=== PATIENT | female | born 1945 | race Caucasian/White ===

== ENCOUNTER → 2019-07-12 | Outpatient (CLI) | payer MEDICARE, BC ==
[2019-07-12 11:17] LABS: Basophils # (A) 0.1 k/uL (0-0.2); Basophils % (A) 1 %; Eosinophils # (A) 0.1 k/uL (0-0.7); Eosinophils % (A) 2 %; HCT 42.8 % (34.0-46.0); HGB 13.5 gm/dL (11.4-16.0); Lymphocytes # (A) 1.6 k/uL (1.0-4.8); Lymphocytes % (A) 27 %; MCHC 31.5 g/dL (31.0-37.0); MCV 91.9 fL (80.0-100.0); Mean Platelet Volume 6.4; Monocytes # (A) 0.4 k/uL (0-1.0); Monocytes % (A) 6 %; Neutrophils # (A) 3.7 k/uL (1.3-7.7); Neutrophils % (A) 62 %; Platelet Count 295 k/uL (150-450); RBC 4.66 m/uL (3.80-5.40); RDW 13.3 % (11.5-15.5); WBC 5.9 k/uL (3.8-10.6)
[2019-07-12 16:02] LABS: African American GFR (CKD) 84.2 (60.0-200.0); Albumin 4.3 g/dL (3.80-4.90); Albumin/Globulin Ratio 2.69 (1.60-3.17); Anion Gap 6.7 mmol/L (4.00-12.00); BUN/Creat Ratio 17.5 Ratio (12.00-20.00); Calcium 10.1 mg/dL (8.7-10.3); Carbon Dioxide 27.3 mmol/L (21.6-31.8); Globulin 1.6 g/dL (1.6-3.3); Potassium 4.2 mmol/L (3.5-5.5); Total Bilirubin 0.3 mg/dL (0.2-1.2); Total Protein 5.9 g/dL (6.2-8.2)
== END | disposition home or self-care (01) ==
LOC: LABWHC1 10:31
PROVIDERS: ATTEND Nurse Practitioner Acute Care
DX: E55.9 Vitamin D deficiency, unspecified (principal); R41.3 Other amnesia
CPT/HCPCS: 36415; 80053; 82306; 82607; 84207; 85025

== ENCOUNTER → 2020-03-20 | Outpatient (CLI) | payer MEDICARE, BC ==
--- NOTE | 2020-03-20 16:34 | FL ---
EXAMINATION TYPE: FL barium swallow DATE OF EXAM: 03/20/2020 HISTORY: Inferior cervical dysphasia with solid foods. COMPARISON: NONE TECHNIQUE: A double contrast esophagram is performed utilizing air and barium. FINDINGS: The esophagus shows no evidence of stricture. There is tertiary peristalsis and retropulsive esophage al waves with delayed esophageal emptying into the stomach. Small sliding-type hiatal hernia. No sign ificant spontaneous or induced gastroesophageal reflux was seen during real time performance of this study. Fluoroscopy time: 1 minute 21 seconds. Total exposures obtained: 27 IMPRESSION: 1. No evidence of esophageal stricture. 2. Esophageal dysmotility as above. 3. Small hiatal hernia.
== END | disposition home or self-care (01) ==
LOC: RADFLMAIN 10:37
PROVIDERS: ATTEND Family Medicine
DX: K22.4 Dyskinesia of esophagus (principal); K44.9 Diaphragmatic hernia without obstruction or gangrene
CPT/HCPCS: 74220

== ENCOUNTER → 2020-07-16 | Outpatient (CLI) | payer MEDICARE, BC ==
--- NOTE | 2020-07-16 15:24 | XR ---
EXAMINATION TYPE: XR shoulder complete RT DATE OF EXAM: 07/16/2020 COMPARISON: NONE HISTORY: Pain TECHNIQUE: Shoulder examined in 3 views FINDINGS: The humeral head articulates with the glenoid. The acromio-clavicular junction has minimal inferior spurring. No acute fractures or dislocations are evident. A follow up study can be performed 7-10 days from acute trauma for continued pain. IMPRESSION: 1. No acute osseous abnormality right shoulder
== END | disposition home or self-care (01) ==
LOC: RADXRMAIN 11:21
PROVIDERS: ATTEND Family Medicine
DX: M25.519 Pain in unspecified shoulder (principal)

== ENCOUNTER 2022-07-30 21:30 | Observation (INO) | payer BC, MEDICARE ==
[2022-07-30] MEDS ORDERED: SODIUM CHLORIDE 0.9% 1,000 ML IV STA (21:32)
--- NOTE | 2022-07-30 21:42 | ED ---
Altered Mental Status HPI - General Chief Complaint: Altered Mental Status Stated Complaint: Altered Mental Time Seen by Provider: 07/30/22 21:31 Source: patient, EMS, RN notes reviewed, old records reviewed Mode of arrival: EMS Limitations: altered mental status - History of Present Illness Initial Comments: This is a 76-year-old female to the emergency department for evaluation of altered mental status change in mental status. Patient sent by family have some left-sided facial droop will reduce it is improving. Patient herself has dementia no complaints poor story. A she presents today for evaluation of increasing mental status possible CVA MD Complaint: altered mental status, confusion, weakness -: unknown Severity: moderate Consistency of Symptoms: waxing and waning, getting worse Context: history of similar presentation Associated Symptoms: weakness Treatments Prior to Arrival: oxygen - Related Data Home Medications Medication Instructions Recorded Confirmed ALPRAZolam [Xanax] 0.25 mg PO BID PRN 07/30/22 07/30/22 Acetaminophen [Tylenol Arthritis] 650 mg PO TID PRN 07/30/22 07/30/22 Cyanocobalamin (Vitamin B-12) 1,000 mcg PO DAILY 07/30/22 07/30/22 [Vitamin B-12] Divalproex Sprinkle [Depakote 125 mg PO DAILY@1800 07/30/22 07/30/22 Sprinkle] Famotidine [Pepcid] 20 mg PO DAILY 07/30/22 07/30/22 Mirtazapine [Remeron Soluspan] 15 mg PO HS 07/30/22 07/30/22 Sennosides/Docusate Sodium [Senna 1 tab PO DAILY 07/30/22 07/30/22 Plus 8.6-50 mg Tablet] busPIRone HCL [Buspar] 7.5 mg PO BID 07/30/22 07/30/22 Allergies Allergy/AdvReac Type Severity Reaction Status Date / Time No Known Allergies Allergy Verified 07/30/22 21:50 Review of Systems ROS Statement: Those systems with pertinent positive or pertinent negative responses have been documented in the HPI. ROS Other: All systems not noted in ROS Statement are negative. Past Medical History Past Medical History: Dementia Additional Past Medical History / Comment(s): diverticulitis History of Any Multi-Drug Resistant Organisms: Unobtainable Past Surgical History: Unable to Obtain Past Psychological History: Unable to Obtain Smoking Status: Unknown if ever smoked Past Alcohol Use History: Unable to Obtain Past Drug Use History: Unable to Obtain General Exam - General Exam Comments Initial Comments: Left facial droop no other focal neurological findings Limitations: altered mental status General appearance: alert, in no apparent distress Head exam: Present: atraumatic, normocephalic, normal inspection Eye exam: Present: normal appearance, PERRL, EOMI. Absent: scleral icterus, conjunctival injection, periorbital swelling ENT exam: Present: normal exam, mucous membranes moist Neck exam: Present: normal inspection. Absent: tenderness, meningismus, lymphadenopathy Respiratory exam: Present: normal lung sounds bilaterally. Absent: respiratory distress, wheezes, rales, rhonchi, stridor Cardiovascular Exam: Present: regular rate, normal rhythm, normal heart sounds. Absent: systolic murmur, diastolic murmur, rubs, gallop, clicks GI/Abdominal exam: Present: soft, normal bowel sounds. Absent: distended, tenderness, guarding, rebound, rigid Extremities exam: Present: normal inspection, full ROM, normal capillary refill. Absent: tenderness, pedal edema, joint swelling, calf tenderness Back exam: Present: normal inspection Neurological exam: Present: alert, oriented X3, CN II-XII intact Psychiatric exam: Present: normal affect, normal mood Skin exam: Present: warm, dry, intact, normal color. Absent: rash Course Vital Signs 07/30/22 07/30/22 21:32 22:58 Temperature 98.4 F Pulse Rate 77 70 Respiratory 16 18 Rate Blood Pressure 142/90 130/65 O2 Sat by Pulse 100 98 Oximetry - Reevaluation(s) Reevaluation #1: 07/31/22 00:24 Medical records reviewed Reevaluation #2: 07/31/22 00:24 Patient's facial droop is mildly improved Reevaluation #3: 07/31/22 00:24 Patient family informed of results and questions have been answered - Consultations Consultation #1: Spoke with admitting physicians will admit this patient Medical Decision Making - Medical Decision Making 6 female DEL with mildly worsening dementia or altered mental status. Little facial droop noted on the left which does appear to be improving patient will be admitted for TIA IV hydration monitoring of neurological complaints and symptoms - Lab Data Result diagrams: 07/30/22 21:43 07/30/22 21:43 Lab Results 07/30/22 07/30/22 07/30/22 Range/Units 21:43 21:43 21:43 WBC 8.1 (3.8-10.6) k/uL RBC 3.92 (3.80-5.40) m/uL Hgb 11.6 (11.4-16.0) gm/dL Hct 37.1 (34.0-46.0) % MCV 94.7 (80.0-100.0) fL MCH 29.6 (25.0-35.0) pg MCHC 31.2 (31.0-37.0) g/dL RDW 14.3 (11.5-15.5) % Plt Count 224 (150-450) k/uL MPV 8.7 Neutrophils % 67 % Lymphocytes % 25 % Monocytes % 5 % Eosinophils % 1 % Basophils % 0 % Neutrophils # 5.4 (1.3-7.7) k/uL Lymphocytes # 2.0 (1.0-4.8) k/uL Monocytes # 0.4 (0-1.0) k/uL Eosinophils # 0.1 (0-0.7) k/uL Basophils # 0.0 (0-0.2) k/uL PT 11.1 (9.0-12.0) sec INR 1.1 (<1.2) APTT 22.2 (22.0-30.0) sec Sodium 139 (137-145) mmol/L Potassium 4.6 (3.5-5.1) mmol/L Chloride 107 (98-107) mmol/L Carbon Dioxide 30 (22-30) mmol/L Anion Gap 2 mmol/L BUN 19 H (7-17) mg/dL Creatinine 0.76 (0.52-1.04) mg/dL Est GFR (CKD-EPI)AfAm 88 (>60 ml/min/1.73 sqM) Est GFR (CKD-EPI)NonAf 76 (>60 ml/min/1.73 sqM) Glucose 87 (74-99) mg/dL Plasma Lactic Acid Vinicius (0.7-2.0) mmol/L Calcium 10.4 H (8.4-10.2) mg/dL Phosphorus 3.5 (2.5-4.5) mg/dL Magnesium 2.4 H (1.6-2.3) mg/dL Total Bilirubin 0.3 (0.2-1.3) mg/dL AST 19 (14-36) U/L ALT 13 (4-34) U/L Alkaline Phosphatase 38 (38-126) U/L Ammonia (<30) umol/L Troponin I (0.000-0.034) ng/mL NT-Pro-B Natriuret Pep pg/mL Total Protein 6.0 L (6.3-8.2) g/dL Albumin 3.8 (3.5-5.0) g/dL TSH 2.740 (0.465-4.680) mIU/L Urine Color Urine Appearance (Clear) Urine pH (5.0-8.0) Ur Specific [place] (1.001-1.035) Urine Protein (Negative) Urine Glucose (UA) (Negative) Urine Ketones (Negative) Urine Blood (Negative) Urine Nitrite (Negative) Urine Bilirubin (Negative) Urine Urobilinogen (<2.0) mg/dL Ur Leukocyte Esterase (Negative) 07/30/22 07/30/22 07/30/22 Range/Units 21:43 21:43 21:43 WBC (3.8-10.6) k/uL RBC (3.80-5.40) m/uL Hgb (11.4-16.0) gm/dL Hct (34.0-46.0) % MCV (80.0-100.0) fL MCH (25.0-35.0) pg MCHC (31.0-37.0) g/dL RDW (11.5-15.5) % Plt Count (150-450) k/uL MPV Neutrophils % % Lymphocytes % % Monocytes % % Eosinophils % % Basophils % % Neutrophils # (1.3-7.7) k/uL Lymphocytes # (1.0-4.8) k/uL Monocytes # (0-1.0) k/uL Eosinophils # (0-0.7) k/uL Basophils # (0-0.2) k/uL PT (9.0-12.0) sec INR (<1.2) APTT (22.0-30.0) sec Sodium (137-145) mmol/L Potassium (3.5-5.1) mmol/L Chloride (98-107) mmol/L Carbon Dioxide (22-30) mmol/L Anion Gap mmol/L BUN (7-17) mg/dL Creatinine (0.52-1.04) mg/dL Est GFR (CKD-EPI)AfAm (>60 ml/min/1.73 sqM) Est GFR (CKD-EPI)NonAf (>60 ml/min/1.73 sqM) Glucose (74-99) mg/dL Plasma Lactic Acid Vinicius 0.8 (0.7-2.0) mmol/L Calcium (8.4-10.2) mg/dL Phosphorus (2.5-4.5) mg/dL Magnesium (1.6-2.3) mg/dL Total Bilirubin (0.2-1.3) mg/dL AST (14-36) U/L ALT (4-34) U/L Alkaline Phosphatase (38-126) U/L Ammonia <9 (<30) umol/L Troponin I <0.012 (0.000-0.034) ng/mL NT-Pro-B Natriuret Pep 200 pg/mL Total Protein (6.3-8.2) g/dL Albumin (3.5-5.0) g/dL TSH (0.465-4.680) mIU/L Urine Color Urine Appearance (Clear) Urine pH (5.0-8.0) Ur Specific [place] (1.001-1.035) Urine Protein (Negative) Urine Glucose (UA) (Negative) Urine Ketones (Negative) Urine Blood (Negative) Urine Nitrite (Negative) Urine Bilirubin (Negative) Urine Urobilinogen (<2.0) mg/dL Ur Leukocyte Esterase (Negative) 07/30/22 Range/Units 21:44 WBC (3.8-10.6) k/uL RBC (3.80-5.40) m/uL Hgb (11.4-16.0) gm/dL Hct (34.0-46.0) % MCV (80.0-100.0) fL MCH (25.0-35.0) pg MCHC (31.0-37.0) g/dL RDW (11.5-15.5) % Plt Count (150-450) k/uL MPV Neutrophils % % Lymphocytes % % Monocytes % % Eosinophils % % Basophils % % Neutrophils # (1.3-7.7) k/uL Lymphocytes # (1.0-4.8) k/uL Monocytes # (0-1.0) k/uL Eosinophils # (0-0.7) k/uL Basophils # (0-0.2) k/uL PT (9.0-12.0) sec INR (<1.2) APTT (22.0-30.0) sec Sodium (137-145) mmol/L Potassium (3.5-5.1) mmol/L Chloride (98-107) mmol/L Carbon Dioxide (22-30) mmol/L Anion Gap mmol/L BUN (7-17) mg/dL Creatinine (0.52-1.04) mg/dL Est GFR (CKD-EPI)AfAm (>60 ml/min/1.73 sqM) Est GFR (CKD-EPI)NonAf (>60 ml/min/1.73 sqM) Glucose (74-99) mg/dL Plasma Lactic Acid Vinicius (0.7-2.0) mmol/L Calcium (8.4-10.2) mg/dL Phosphorus (2.5-4.5) mg/dL Magnesium (1.6-2.3) mg/dL Total Bilirubin (0.2-1.3) mg/dL AST (14-36) U/L ALT (4-34) U/L Alkaline Phosphatase (38-126) U/L Ammonia (<30) umol/L Troponin I (0.000-0.034) ng/mL NT-Pro-B Natriuret Pep pg/mL Total Protein (6.3-8.2) g/dL Albumin (3.5-5.0) g/dL TSH (0.465-4.680) mIU/L Urine Color Yellow Urine Appearance Clear (Clear) Urine pH 6.0 (5.0-8.0) Ur Specific [place] 1.017 (1.001-1.035) Urine Protein Negative (Negative) Urine Glucose (UA) Negative (Negative) Urine Ketones Negative (Negative) Urine Blood Negative (Negative) Urine Nitrite Negative (Negative) Urine Bilirubin Negative (Negative) Urine Urobilinogen <2.0 (<2.0) mg/dL Ur Leukocyte Esterase Negative (Negative) - EKG Data -: EKG Interpreted by Me (EKG shows NSR 66 NC 145 QRS 84 QTc 413) - Radiology Data Radiology results: report reviewed (CT brain negative for acute disease), image reviewed Disposition Clinical Impression: Altered mental status, TIA (transient ischemic attack), Weakness, Dehydration Disposition: ADMITTED IP TO THIS HOSP Condition: Fair Is patient prescribed a controlled substance at d/c from ED?: No Referrals: Santana Pacheco MD [Primary Care Provider] - 1-2 days Time of Disposition: 00:25
[2022-07-30 21:53] LABS: Appearance,Urine Clear (Clear); Bilirubin,Urine Negative (Negative); Blood,Urine Negative (Negative); Color,Urine Yellow; Glucose,Urine (UA) Negative (Negative); Ketones,Urine Negative (Negative); Leukocyte Esterase,Urine Negative (Negative); Nitrite,Urine Negative (Negative); Protein,Urine Negative (Negative); Specific Gravity,Urine 1.017 (1.001-1.035); Urobilinogen,Urine <2.0 mg/dL (<2.0)
[2022-07-30 21:55] LABS: Basophils % (A) 0 %; Eosinophils # (A) 0.1 k/uL (0-0.7); Eosinophils % (A) 1 %; HCT 37.1 % (34.0-46.0); HGB 11.6 gm/dL (11.4-16.0); Lymphocytes % (A) 25 %; MCH 29.6 pg (25.0-35.0); MCHC 31.2 g/dL (31.0-37.0); MCV 94.7 fL (80.0-100.0); Mean Platelet Volume 8.7; Monocytes # (A) 0.4 k/uL (0-1.0); Monocytes % (A) 5 %; Neutrophils # (A) 5.4 k/uL (1.3-7.7); Neutrophils % (A) 67 %; Platelet Count 224 k/uL (150-450); RBC 3.92 m/uL (3.80-5.40); RDW 14.3 % (11.5-15.5); WBC 8.1 k/uL (3.8-10.6)
[2022-07-30 22:03] LABS: Lactic Acid, Venous 0.8 mmol/L (0.7-2.0)
[2022-07-30 22:06] LABS: Albumin 3.8 g/dL (3.5-5.0); Calcium 10.4 mg/dL (8.4-10.2); Total Bilirubin 0.3 mg/dL (0.2-1.3)
[2022-07-30 22:09] LABS: INR 1.1 (<1.2); Partial Thromboplastin Time 22.2 sec (22.0-30.0); Prothrombin Time 11.1 sec (9.0-12.0)
[2022-07-30 22:20] LABS: Magnesium 2.4 mg/dL (1.6-2.3); Phosphorus 3.5 mg/dL (2.5-4.5); Potassium 4.6 mmol/L (3.5-5.1)
--- NOTE | 2022-07-31 00:01 | CT ---
EXAMINATION TYPE: CT brain wo con DATE OF EXAM: 07/30/2022 COMPARISON: None HISTORY: AMS CT DLP: 1121.4 mGycm Automated exposure control for dose reduction was used. Images obtained of the brain with no contrast. There is moderate diffuse cerebral cortical atrophy. There is no mass effect or midline shift. No sig n of intracranial hemorrhage. The calvarium is intact. The skull base is intact. There is normal aera tion of the mastoid sinuses. IMPRESSION: Cerebral atrophy. No acute intracranial abnormality.
[2022-07-31] MEDS ORDERED: NALOXONE 0.4 MG/ML 1 ML VIAL IV PRN (02:15)
[2022-07-31] MEDS ORDERED: ONDANSETRON 4 MG/2 ML VIAL IVP PRN (02:15)
[2022-07-31] MEDS ORDERED: MORPHINE SULFATE 4 MG/ML SYRINGE IV PRN (02:15)
[2022-07-31] MEDS ORDERED: ASPIRIN 81 MG PO STA (02:16)
[2022-07-31] MEDS: SODIUM CHLORIDE 0.9% 1,000 ML IV SCH ×3 (09:01→17:16)
[2022-07-31] MEDS ORDERED: ALPRAZolam 0.25 MG TAB PO PRN (10:33)
--- NOTE | 2022-07-31 10:41 | P.HPIM ---
History of Present Illness H&P Date: 07/31/22 History of present illness: Patient is 76-year-old lady with past medical history for dementia presented to the ER because of altered mental status. Family noted that the patient was much more confused from her baseline and also they noticed she had left facial droop. They didn't notice any weakness of any extremity. There was no complain of any slurred speech. Because of her altered mental status, patient was brought to the ER.Initial lab work done in the ER, showed patient hemoglobin of 11.6, patient currently 24, sodium 139, potassium 4.6, chloride 107, carbon dioxide 30, creatinine 0.76, UA negative for UTI, CT head negative for acute intracranial process. Patient was admitted for further evaluation and treatment REVIEW OF SYSTEMS: CONSTITUTIONAL: No fever, no malaise, no fatigue. HEENT: No recent visual problems or hearing problems. Denied any sore throat. CARDIOVASCULAR: No chest pain, orthopnea, PND, no palpitations, no syncope. PULMONARY: No shortness of breath, no cough, no hemoptysis. GASTROINTESTINAL: No diarrhea, no nausea, no vomiting, no abdominal pain. NEUROLOGICAL: No headaches, no weakness, no numbness. HEMATOLOGICAL: Denies any bleeding or petechiae. GENITOURINARY: Denies any burning micturition, frequency, or urgency. MUSCULOSKELETAL/RHEUMATOLOGICAL: Denies any joint pain, swelling, or any muscle pain. ENDOCRINE: Denies any polyuria or polydipsia. The rest of the 14-point review of systems is negative. PHYSICAL EXAMINATION: GENERAL: The patient is alert and oriented xself, not in any acute distress. Well developed, well nourished. HEENT: Pupils are round and equally reacting to light. EOMI. No scleral icterus. No conjunctival pallor. Normocephalic, atraumatic. No pharyngeal erythema. No thyromegaly. CARDIOVASCULAR: S1 and S2 present. No murmurs, rubs, or gallops. PULMONARY: Chest is clear to auscultation, no wheezing or crackles. ABDOMEN: Soft, nontender, nondistended, normoactive bowel sounds. No palpable organomegaly. MUSCULOSKELETAL: No joint swelling or deformity. EXTREMITIES: No cyanosis, clubbing, or pedal edema. NEUROLOGICAL: Gross neurological examination did not reveal any focal deficits. Muscle strength 5 x 5 in all extremities, no obvious facial droop seen SKIN: No rashes. Assessment and plan TIA. Acute metabolic encephalopathy History of dementia Plan; Monitor vital signs Monitor CBC Fall precaution Delirium precaution Consult neurology Consult PT and OT Resume home meds Past Medical History Past Medical History: Dementia Additional Past Medical History / Comment(s): diverticulitis History of Any Multi-Drug Resistant Organisms: Unobtainable Past Surgical History: Unable to Obtain Past Psychological History: Unable to Obtain Smoking Status: Unknown if ever smoked Past Alcohol Use History: Unable to Obtain Past Drug Use History: Unable to Obtain Medications and Allergies Home Medications Medication Instructions Recorded Confirmed Type ALPRAZolam [Xanax] 0.25 mg PO BID PRN 07/30/22 07/30/22 History Acetaminophen [Tylenol Arthritis] 650 mg PO TID PRN 07/30/22 07/30/22 History Cyanocobalamin (Vitamin B-12) 1,000 mcg PO DAILY 07/30/22 07/30/22 History [Vitamin B-12] Divalproex Sprinkle [Depakote 125 mg PO DAILY@1800 07/30/22 07/30/22 History Sprinkle] Famotidine [Pepcid] 20 mg PO DAILY 07/30/22 07/30/22 History Mirtazapine [Remeron Soluspan] 15 mg PO HS 07/30/22 07/30/22 History Sennosides/Docusate Sodium [Senna 1 tab PO DAILY 07/30/22 07/30/22 History Plus 8.6-50 mg Tablet] busPIRone HCL [Buspar] 7.5 mg PO BID 07/30/22 07/30/22 History Allergies Allergy/AdvReac Type Severity Reaction Status Date / Time No Known Allergies Allergy Verified 07/30/22 21:50 Physical Exam Vitals: Vital Signs Temp Pulse Resp BP Pulse Ox 07/31/22 09:36 62 07/31/22 09:08 65 18 07/31/22 06:43 64 18 121/59 98 07/31/22 03:00 57 L 18 132/76 98 07/30/22 22:58 70 18 130/65 98 07/30/22 21:32 98.4 F 77 16 142/90 100 Intake and Output 07/30/22 07/31/22 07/31/22 22:59 06:59 14:59 Other: Weight 44.724 kg Results CBC & Chem 7: 07/30/22 21:43 07/30/22 21:43 Labs: Abnormal Lab Results - Last 24 Hours (Table) 07/30/22 Range/Units 21:43 BUN 19 H (7-17) mg/dL Calcium 10.4 H (8.4-10.2) mg/dL Magnesium 2.4 H (1.6-2.3) mg/dL Total Protein 6.0 L (6.3-8.2) g/dL
[2022-07-31] MEDS ORDERED: DIVALPROEX SPRINKLE 125 MG CAP.SPRINK PO SCH (18:00)
--- NOTE | 2022-07-31 19:16 | P.CNNES ---
History of Present Illness Consult date: 07/31/22 Requesting physician: Lenny Dunaway Reason for Consult: TIA History of Present Illness: Patient is a 76-year-old female with history of advanced dementia, resident of [facility] was brought to the hospital by ambulance yesterday at 9:30 PM for possible TIA. Patient not able to provide any history. Patient's son and daughter in law are present, who provided with a history. They mentioned that they got a call from the [facility] that patient was having a droopy face. Patient's family came over and also observed her face was droopy. She was also complaining of a lot of pain. However within 2 hours, the droopiness resolved. There was no focal weakness or visual disturbance reported. As per EMS flow sheet, when they arrived, patient was in care of staff who noticed some mental status changes with the patient, not responding as per her normal. Patient was alert and oriented 2 per staff at baseline. However she does interact appropriately with the staff. Patient was actively moving all her extremities on her own. She was using words but does not seem to have any purpose. She did complain of feeling dizzy. Last seen normal was 7:45 PM. Patient's vitals at the scene was blood pressure 147/89 pulse rate 88, respiration 20 and saturation 97%, blood sugar 160. Blood test shows normal CBC PT/PTT, normal chem 20, troponin is negative, ammonia is normal. TSH normal. UA negative. CT head showed cerebral atrophy with no acute intracranial abnormality. I personally reviewed CT head a few the findings. EKG shows sinus rhythm. Patient's home medications include Remeron 15 mg, BuSpar 7.5 mg twice a day, B12 1000 g orally daily, Xanax 0.25 mg twice a day when necessary, Pepcid, Depakote 125 mg daily at bedtime and Tylenol. Patient does not take any antiplatelet medication. No previous history of diabetes, hypertension and tobacco or alcohol use. Patient's dementia started about 5 years ago. It is particularly got worse in the last 8-12 months. Patient has not seen a neurologist for last 3-4 years. Patient has strong family history of dementia in her brother, mother and one maternal aunt. Patient's used to take care of her, but he in December. She has been more confused since then. Review of Systems Patient has advanced dementia, not able to provide any review of systems. Patient's family also could not provide any more. ROS unobtainable: due to mental status Past Medical History Past Medical History: Dementia Additional Past Medical History / Comment(s): diverticulitis History of Any Multi-Drug Resistant Organisms: Unobtainable Past Surgical History: Unable to Obtain Past Psychological History: Unable to Obtain Smoking Status: Unknown if ever smoked Past Alcohol Use History: Unable to Obtain Past Drug Use History: Unable to Obtain Medications and Allergies Home Medications Medication Instructions Recorded Confirmed Type ALPRAZolam [Xanax] 0.25 mg PO BID PRN 07/30/22 07/30/22 History Acetaminophen [Tylenol Arthritis] 650 mg PO TID PRN 07/30/22 07/30/22 History Cyanocobalamin (Vitamin B-12) 1,000 mcg PO DAILY 07/30/22 07/30/22 History [Vitamin B-12] Divalproex Sprinkle [Depakote 125 mg PO DAILY@1800 07/30/22 07/30/22 History Sprinkle] Famotidine [Pepcid] 20 mg PO DAILY 07/30/22 07/30/22 History Mirtazapine [Remeron Soluspan] 15 mg PO HS 07/30/22 07/30/22 History Sennosides/Docusate Sodium [Senna 1 tab PO DAILY 07/30/22 07/30/22 History Plus 8.6-50 mg Tablet] busPIRone HCL [Buspar] 7.5 mg PO BID 07/30/22 07/30/22 History Allergies Allergy/AdvReac Type Severity Reaction Status Date / Time No Known Allergies Allergy Verified 07/30/22 21:50 Physical Examination - Vital Signs Vital Signs: Vital Signs Temp Pulse Resp BP Pulse Ox 07/31/22 09:36 62 07/31/22 09:08 65 18 07/31/22 06:43 64 18 121/59 98 07/31/22 03:00 57 L 18 132/76 98 07/30/22 22:58 70 18 130/65 98 07/30/22 21:32 98.4 F 77 16 142/90 100 Intake and Output 07/30/22 07/31/22 07/31/22 22:59 06:59 14:59 Other: Weight 44.724 kg Patient is an elderly female, in no acute distress. Patient is alert awake, very confused. Patient knows her name, able to tell name of her son and [id number]. She could not tell name of her son just, who is estranged. Patient could not tell how many children she has. She could not tell what city or state she is living in. Her limited speech was clear. Kevin goss was not able to name knuckles or earlobes, (only able to tell fingers and ears) Speech and language functions are normal. Attention, concentration and fund of knowledge is very limited. On cranial nerve examination, pupils are equal, round and reacting to light, patient blinks to visual threat bilaterally. Extraocular muscles are intact with no nystagmus. Face is symmetric, tongue protrudes to the midline. Palatal elevation and sensation normal, hearing is decreased and shoulder shrug normal, facial sensation normal. On muscle strength testing, there is no pronator drift and the strength is normal in arms and legs distally and proximally. Deep tendon reflexes are symmetric to all over and plantars are flat bilaterally. Sensory to touch is equal. She could not follow directions regarding checking for neglect. Cerebellar function showed no ataxia for [id number] testing. Tone and bulk of muscles normal. Gait deferred.. On general examination, there is no carotid bruit or murmur, S1-S2 audible. Chest is clear on consultation. Abdomen is soft nontender. No organomegaly, bowel sounds present. Peripheral pulses are present. No edema. Results - Laboratory Findings CBC and BMP: 07/30/22 21:43 07/30/22 21:43 Abnormal Lab Findings: Abnormal Labs 07/30/22 21:43 BUN 19 H Calcium 10.4 H Magnesium 2.4 H Total Protein 6.0 L Assessment and Plan Assessment: * Probable TIA manifesting with transient facial droop, that resolved in 2 hours. * Advanced dementia Plan: * Carotid Doppler * 2-D echo * Fasting a.m. lipid panel and hemoglobin A1c * Patient has received a loading dose of aspirin 324 mg in the ER. Patient will be started on aspirin 81 mg daily indefinitely. * Continue telemetry monitoring. * DVT prophylaxis: Heparin 5000 units subcu every 12 hours. * Dr. Sd Holland Will resume neurology service in the morning. * Thank you for the consult.
--- NOTE | 2022-07-31 20:08 | US ---
EXAMINATION TYPE: US carotid duplex BILAT DATE OF EXAM: 07/31/2022 COMPARISON: NONE CLINICAL HISTORY: TIA. TIA Limited due to patient moving and talking. TECHNIQUE: Carotid duplex ultrasound examination. Indirect Doppler criteria was utilized. FINDINGS: EXAM MEASUREMENTS: RIGHT: Peak Systolic Velocity (PSV) cm/sec ----- Right CCA: 45.9 ----- Right ICA: 133.4 ----- Right ECA: 86.6 ICA/CCA ratio: 2.9 RIGHT: End Diastole cm/sec ----- Right CCA: 0 ----- Right ICA: 20.4 ----- Right ECA: 17.1 LEFT: Peak Systolic Velocity (PSV) cm/sec ----- Left CCA: 51 ----- Left ICA: 59.1 ----- Left ECA: 97.3 ICA/CCA ratio: 1.2 LEFT: End Diastole cm/sec ----- Left CCA: 10.7 ----- Left ICA: 15.5 ----- Left ECA: 0 VERTEBRALS (direction of flow): Right Vertebral: Antegrade Left Vertebral: Antegrade Rhythm: Normal STYLIST ASSISTANT NOTES: No significant stenosis seen IMPRESSION: There is antegrade flow in the vertebral arteries. The images and measurements suggest less than 25% stenosis in both internal carotid arteries. Criteria for Assigning % of Stenosis / Diameter reduction (Estimation based on the indirect measurements of the internal carotid artery velocities (ICA PSV). 1. Normal (no stenosis)=ICA PSV < 125 cm/s: ratio < 2.0: ICA EDV<40 cm/s. 2. Less than 50% stenosis=ICA PSV < 125 cm/s: ratio < 2.0: ICA EDV<40 cm/s. 3. 50 to 69% stenosis=ICA PSV of 125 to 230 cm/s: ration 2.0 ? 4.0: ICA EDV 40-100 cm/s. 4. Greater than 70% stenosis to near occlusion= ICA PSV > 230 cm/s: ratio > 4.0: ICA EDV > 100 cm/s. 5. Near occlusion= ICA PSV velocities may be low or undetectable: variable ratio and ICA EDV. 6. Total occlusion=unable to detect flow.
[2022-07-31] MEDS: busPIRone HCl 5 MG TAB PO SCH (20:57)
[2022-07-31] MEDS: HEPARIN SODIUM,PORCINE/PF 5,000 UNIT/0.5 ML SYRINGE SQ SCH (20:57)
[2022-07-31] MEDS ORDERED: MIRTAZAPINE 15 MG TAB PO SCH (21:00)
[2022-08-01] MEDS: SODIUM CHLORIDE 0.9% 1,000 ML IV SCH (06:17)
[2022-08-01 08:40] VITALS: RESP 16
[2022-08-01 09:00] LABS: Basophils # (A) 0.04 X 10*3/uL (0.00-0.10); Basophils % (A) 0.6 %; Eosinophils # (A) 0.12 X 10*3/uL (0.04-0.35); Eosinophils % (A) 1.9 %; HCT 35.2 % (37.2-46.3); HGB 11.1 g/dL (12.0-15.0); Immature Grans, Automated 0.3 %; Lymphocytes # (A) 1.17 X 10*3/uL (0.90-5.00); MCH 29.1 pg (27.0-32.0); MCHC 31.5 g/dL (32.0-37.0); MCV 92.4 fL (80.0-97.0); Mean Platelet Volume 10.3 fL (9.5-12.2); Monocytes # (A) 0.41 X 10*3/uL (0.20-1.00); Monocytes % (A) 6.7 %; NRBC Per 100 WBC 0 /100 WBCS (0.0-0.0); Neutrophils % (A) 71.5 %; Platelet Count 220 X 10*3/uL (140-440); RBC 3.81 X 10*6/uL (4.10-5.20); RDW 14.6 % (11.5-14.5); WBC 6.16 X 10*3/uL (4.50-10.00)
[2022-08-01] MEDS ORDERED: CYANOCOBALAMIN 500 MCG TAB PO SCH (09:00)
[2022-08-01] MEDS ORDERED: ASPIRIN 81 MG PO SCH (09:00)
[2022-08-01] MEDS ORDERED: FAMOTIDINE 20 MG/2 ML VIAL IV SCH (09:00)
[2022-08-01 09:17] LABS: ALT 10 U/L (8-44); AST 10 U/L (13-35); African American GFR (CKD) 96.9 (60.0-200.0); Albumin 3.5 g/dL (3.8-4.9); Albumin/Globulin Ratio 2.33 (1.60-3.17); Alkaline Phosphatase 44 U/L (41-126); BUN/Creat Ratio 18.71 Ratio (12.00-20.00); Blood Urea Nitrogen 13.1 mg/dL (9.0-27.0); Calcium 10.1 mg/dL (8.7-10.3); Carbon Dioxide 25.5 mmol/L (20.0-27.5); Chloride 108 mmol/L (96-109); Chol/HDL Ratio 5.52 Ratio; Globulin 1.5 g/dL (1.6-3.3); Glucose 88 mg/dL (70-110); Magnesium 2.2 mg/dL (1.5-2.4); Non-African American GFR(CKD) 83.6 (60.0-200.0); Phosphorus 3.2 mg/dL (2.4-5.1); Potassium 3.8 mmol/L (3.5-5.5); Sodium 142 mmol/L (135-145); VLDL Calculation 19.66 mg/dL (5.00-40.00)
[2022-08-01] MEDS: busPIRone HCl 5 MG TAB PO SCH (10:33)
[2022-08-01] MEDS: HEPARIN SODIUM,PORCINE/PF 5,000 UNIT/0.5 ML SYRINGE SQ SCH (11:17)
--- NOTE | 2022-08-01 12:31 | P.PN ---
Subjective Progress Note Date: 08/01/22 I am seeing the patient for the first time during this hospital visit. She has advanced dementia. Per family member, patient is doing better and would like to take her home. Please refer to Dr. Zelaya's note for further details. Objective - Vital Signs Vital signs: Vital Signs Temp 97.9 F 08/01/22 07:00 Pulse 74 08/01/22 07:00 Resp 16 08/01/22 07:00 BP 114/66 08/01/22 07:00 Pulse Ox 100 08/01/22 07:00 FiO2 Intake & Output 07/31/22 08/01/22 08/01/22 18:59 06:59 18:59 Intake Total 240 Balance 240 Weight 44.724 kg Intake: Oral 240 Other: # Voids 2 - Exam GENERAL: The patient is lying in bed and is not in acute distress. NEUROLOGICAL: Limited since has advanced dementia and because of cooperation. Higher mental function: The patient is awake, alert, oriented to self. She stated she does not know time and could not respond to place. Language is limited. Cranial nerves: The pupils are round, equal and reactive to light. No facial weakness. No dysarthria. Otherwise rest is limited because of cooperation. Motor: Gait with family member and was somewhat one person assist. The strength is 5 over 5 throughout. Normal tone and bulk. Cerebellum: Unable to assess. Sensation: Unable to assess. - Labs CBC & Chem 7: 08/01/22 06:04 08/01/22 06:04 Labs: Abnormal Lab Results - Last 24 Hours (Table) 08/01/22 08/01/22 Range/Units 06:04 06:04 RBC 3.81 L (4.10-5.20) X 10*6/uL Hgb 11.1 L (12.0-15.0) g/dL Hct 35.2 L (37.2-46.3) % MCHC 31.5 L (32.0-37.0) g/dL RDW 14.6 H (11.5-14.5) % Anion Gap 8.50 L (10.00-18.00) mmol/L AST 10 L (13-35) U/L Total Protein 5.0 L (6.2-8.2) g/dL Albumin 3.5 L (3.8-4.9) g/dL Globulin 1.5 L (1.6-3.3) g/dL Cholesterol 217.00 H (0.00-200.00) mg/dL LDL Cholesterol, Calc 158.0 H (0.0-131.0) mg/dL HDL Cholesterol 39.30 L (40.00-60.00) mg/dL Assessment and Plan Assessment: * Probable TIA manifesting with transient facial droop, that resolved in 2 hours. * Advanced dementia Plan: * Carotid Doppler: It is reported as there is antegrade flow in the vertebral arteries. Images and measurements suggest less than 25% stenosis in both internal carotid arteries. * 2-D echo: pending. * Fasting a.m. lipid panel: TG 98, cholestrol 217, LDL 158. Hemoglobin A1c: 5.5 * TSH: 2.74 * Patient has received a loading dose of aspirin 324 mg in the ER. Patient will be started on aspirin 81 mg daily indefinitely. * Continue telemetry monitoring. * DVT prophylaxis: Heparin 5000 units subcu every 12 hours. Otherwise no additional work-up best pending 2D echo. Plan is discussed with patient's primary team. Time with Patient: Less than 30
--- NOTE | 2022-08-01 14:38 | CA ---
Transthoracic Echo Report Name: Ricarda Wade Age: 76 Gender: F : 1945 Exam Date: 08/01/2022 09:58 Exam Location: [facility] Ht (in): 62 Wt (lb): 98 Ordering Physician: Travis Zelaya MD Attending/Referring Phys: Electrical And Instrument Technician Geovanna Huerta RDCS Procedure CPT: Indications: tia Cardiac Hx: Technical Quality: Fair Contrast 1: Total Dose (mL): Contrast 2: Total Dose (mL): MEASUREMENTS (Male / Female) Normal Values 2D ECHO LV Diastolic Diameter PLAX 3.6 cm 4.2 - 5.9 / 3.9 - 5.3 cm LV Systolic Diameter PLAX 1.9 cm IVS Diastolic Thickness 0.7 cm 0.6 - 1.0 / 0.6 - 0.9 cm LVPW Diastolic Thickness 0.7 cm 0.6 - 1.0 / 0.6 - 0.9 cm LV Relative Wall Thickness 0.4 RV Internal Dim ED PLAX 3.1 cm LA Volume 26.8 cm??? 18 - 58 / 22 - 52 cm??? M-MODE Aortic Root Diameter MM 2.5 cm LA Systolic Diameter MM 3.1 cm LA Ao Ratio MM 1.2 AV Cusp Separation MM 1.6 cm DOPPLER AV Peak Velocity 134.9 cm/s AV Peak Gradient 7.3 mmHg AV Mean Velocity 88.1 cm/s AV Mean Gradient 3.6 mmHg AV Velocity Time Integral 25.1 cm LVOT Peak Velocity 96.9 cm/s LVOT Peak Gradient 3.8 mmHg MV Area PHT 3.0 cm??? Mitral E Point Velocity 80.0 cm/s Mitral A Point Velocity 107.3 cm/s Mitral E to A Ratio 0.7 MV Deceleration Time 251.1 ms MV E' Velocity 7.3 cm/s Mitral E to MV E' Ratio 10.9 TR Peak Velocity 260.1 cm/s TR Peak Gradient 27.1 mmHg Right Ventricular Systolic Press 32.1 mmHg FINDINGS Left Ventricle Normal Left ventricular size, wall thickness, systolic function with no obvious regional wall motion abnormalities. Normal Left ventricular diastolic filling pattern. Left ventricular ejection fraction is estimated at 55-60 %. Right Ventricle Normal right ventricular size and function. Right ventricular systolic pressure within normal limits. Right Atrium Normal right atrial size. Left Atrium Normal left atrial size. Mitral Valve Structurally normal mitral valve. No mitral stenosis and prolapse. Trace mitral regurgitation. Aortic Valve Trileaflet aortic valve. No aortic valve stenosis or regurgitation. Tricuspid Valve Structurally normal tricuspid valve. Mild tricuspid regurgitation. Pulmonic Valve Trace pulmonic regurgitation. Pericardium No pericardial effusion. Aorta Normal size aortic root and proximal ascending aorta. CONCLUSIONS Normal LV systolic function No valvular abnormalities of significance Previewed by: Dr. Benitez Garcia MD (Electronically Signed) Final Date: 01 August 2022 14:37
[2022-08-01 15:29] VITALS: BP 120/65; PULSE 62; TEMP 97.4
--- NOTE | 2022-08-01 22:24 | P.DS ---
Providers Date of admission: 07/31/22 02:15 Attending physician: Hilton Raza Consults: 07/31/22 02:15 Consult Physician Routine Consulting Provider: Travis Zelaya Consult Reason/Comments: tia Do you want consulting provider notified?: Yes Primary care physician: Santana Pacheco Hospital Course: Hospital course: Patient is 76-year-old lady with past medical history for dementia presented to the ER because of altered mental status. Family noted that the patient was much more confused from her baseline and also they noticed she had left facial droop. Within 2 hours patient back to baseline. I discussed the case with the neurologist today patient looks like has advanced dementia, patient is at baseline and family and daughter wants to take her home today. Patient was started on baby aspirin 81 mg daily. Patient was lying in bed comfortable pleasant and smiling, she denies any pain. Patient looks somewhat confused to the surroundings. CT of the brain was negative Vitals and labs reviewed and looks stable Patient was cleared for discharge by neurologist Patient was started on aspirin upon discharge, risk and benefits including but not limited to the risk of significant bleeding are explained to the family and they are agreeable. Problems and management plan were discussed with the patient family and they verbalized understanding and acceptance Patient was found stable and can be discharged home in guarded prognosis however he needs follow-up as an outpatient. Patient was instructed to follow up with PCP within one week and patient family agrees, as per family patient has visit ing physician rather than Dr. Pacheco Physical exam Gen: patient is a awake alert and confused at baseline, no distress CVS: S1-S2, RRR, no murmur Lungs: B/L CTA, no wheezing Abdomen: soft, no distention, no tenderness, positive bowel sounds Extremity: no leg edema or induration Time spent more than 35 minutes Patient Condition at Discharge: Fair Plan - Discharge Summary New Discharge Prescriptions: New Aspirin 81 mg PO DAILY #30 tab Continue Sennosides/Docusate Sodium [Senna Plus 8.6-50 mg Tablet] 1 tab PO DAILY Mirtazapine [Remeron Soluspan] 15 mg PO HS busPIRone HCL [Buspar] 7.5 mg PO BID Cyanocobalamin (Vitamin B-12) [Vitamin B-12] 1,000 mcg PO DAILY ALPRAZolam [Xanax] 0.25 mg PO BID PRN PRN Reason: Anxiety Famotidine [Pepcid] 20 mg PO DAILY Divalproex Sprinkle [Depakote Sprinkle] 125 mg PO DAILY@1800 Acetaminophen [Tylenol Arthritis] 650 mg PO TID PRN PRN Reason: Pain Discharge Medication List ALPRAZolam [Xanax] 0.25 mg PO BID PRN 07/30/22 [History] Acetaminophen [Tylenol Arthritis] 650 mg PO TID PRN 07/30/22 [History] Cyanocobalamin (Vitamin B-12) [Vitamin B-12] 1,000 mcg PO DAILY 07/30/22 [History] Divalproex Sprinkle [Depakote Sprinkle] 125 mg PO DAILY@1800 07/30/22 [History] Famotidine [Pepcid] 20 mg PO DAILY 07/30/22 [History] Mirtazapine [Remeron Soluspan] 15 mg PO HS 07/30/22 [History] Sennosides/Docusate Sodium [Senna Plus 8.6-50 mg Tablet] 1 tab PO DAILY 07/30/22 [History] busPIRone HCL [Buspar] 7.5 mg PO BID 07/30/22 [History] Aspirin 81 mg PO DAILY #30 tab 08/01/22 [Rx] Follow up Appointment(s)/Referral(s): Santana Pacheco MD [Primary Care Provider] - 1-2 days Luan oMran MD [Medical Doctor] - 1 Week (neurolgist ) Patient Instructions/Handouts: Transient Ischemic Attack (DC) Activity/Diet/Wound Care/Special Instructions: heart heathy diet activity is restricted till you see your doctor Patient resides at [facility]. Discharge Disposition: HOME WITH HOME HEALTH SERVICES
== END 2022-08-01 15:50 | disposition home health service (06) ==
LOC: EC 21:30 → 6NMEDSUR 07-31 02:15
PROVIDERS: ADMIT Hospitalist; ATTEND Hospitalist
DX: G93.41 Metabolic encephalopathy (principal); R29.810 Facial weakness; E86.0 Dehydration; F03.90 Unspecified dementia, unspecified severity, without behavioral disturbance, psychotic disturbance, mood disturbance, and anxiety; Z79.899 Other long term (current) drug therapy; Z81.8 Family history of other mental and behavioral disorders
CPT/HCPCS: 96374; 99285; 36415; 94760; 93005; 93306; 83880; 80061; 80053 ×2; 82140; 83605; 83735 ×2; 84100 ×2; 84443; 84484; 85025 ×2; 85610; 85730; 81003; 83036; 93880; 70450; G0378 ×2

== ENCOUNTER 2023-01-07 10:11 | Observation (INO) | payer MEDICARE ==
--- NOTE | 2023-01-07 10:29 | ED ---
General Adult HPI - General Chief complaint: Skin/Abscess/Foreign Body Stated complaint: failure to thrive Time Seen by Provider: 01/07/23 10:18 Source: patient, EMS, RN notes reviewed Mode of arrival: EMS Limitations: altered mental status - History of Present Illness Initial comments: Patient is a pleasant 77-year-old female presenting to emergency department with concern with change in mental status. Patient is a poor historian and does not offer significant history. Patient arrives to [facility]. Unclear last known well. Patient reportedly was recently treated for antibiotic, Bactrim for urinary tract infection. Patient did develop a rash sometime recently. - Related Data Home Medications Medication Instructions Recorded Confirmed ALPRAZolam [Xanax] 0.25 mg PO BID PRN 07/30/22 07/30/22 Acetaminophen [Tylenol Arthritis] 650 mg PO TID PRN 07/30/22 07/30/22 Cyanocobalamin (Vitamin B-12) 1,000 mcg PO DAILY 07/30/22 07/30/22 [Vitamin B-12] Divalproex Sprinkle [Depakote 125 mg PO DAILY@1800 07/30/22 07/30/22 Sprinkle] Famotidine [Pepcid] 20 mg PO DAILY 07/30/22 07/30/22 Mirtazapine [Remeron Soluspan] 15 mg PO HS 07/30/22 07/30/22 Sennosides/Docusate Sodium [Senna 1 tab PO DAILY 07/30/22 07/30/22 Plus 8.6-50 mg Tablet] busPIRone HCL [Buspar] 7.5 mg PO BID 07/30/22 07/30/22 Previous Rx's Medication Instructions Recorded Aspirin 81 mg PO DAILY #30 tab 08/01/22 Allergies Allergy/AdvReac Type Severity Reaction Status Date / Time No Known Allergies Allergy Verified 07/30/22 21:50 Review of Systems ROS Statement: Those systems with pertinent positive or pertinent negative responses have been documented in the HPI. ROS Other: All systems not noted in ROS Statement are negative. Limitations: ROS unobtainable due to patients medical condition Skin: Reports: as per HPI, rash Neurological: Reports: as per HPI, confusion Past Medical History Past Medical History: Dementia Additional Past Medical History / Comment(s): diverticulitis History of Any Multi-Drug Resistant Organisms: Unobtainable Past Surgical History: Unable to Obtain Past Psychological History: Unable to Obtain Smoking Status: Unknown if ever smoked Past Alcohol Use History: Unable to Obtain Past Drug Use History: Unable to Obtain General Exam Limitations: altered mental status General appearance: alert, in no apparent distress Head exam: Present: atraumatic, normocephalic Eye exam: Present: normal appearance, PERRL ENT exam: Present: mucous membranes dry Neck exam: Present: normal inspection. Absent: tenderness, meningismus Respiratory exam: Present: normal lung sounds bilaterally Cardiovascular Exam: Present: regular rate, normal rhythm GI/Abdominal exam: Present: soft. Absent: tenderness Extremities exam: Present: normal inspection. Absent: pedal edema, calf tenderness Neurological exam: Present: alert, altered (Limited verbal capability). Absent: motor sensory deficit Expanded Patient oriented to: Absent: person, place, time Motor strength exam: RUE: 5, LUE: 5, RLE: 5, LLE: 5 Eye Response: (3) open to voice Motor Response: (5) localizes to pain Verbal Response: (3) inappropriate words Psychiatric exam: Present: flat affect Skin exam: Present: normal color Course Vital Signs 01/07/23 01/07/23 10:12 11:00 Temperature 98.4 F Pulse Rate 79 80 Respiratory 16 16 Rate Blood Pressure 113/69 109/62 O2 Sat by Pulse 95 96 Oximetry EKG Findings - EKG Results: EKG: interpreted by ERMD, sinus rhythm, normal axis, normal QRS, normal ST/T Medical Decision Making - Medical Decision Making Was pt. sent in by a medical professional or institution (, PA, UROLOGIC NURSE, urgent care, hospital, or half-way...) When possible be specific @ -Patient was sent from nursing facility Did you speak to anyone other than the patient for history (EMS, parent, family, police, friend...)? What history was obtained from this source @ -Family later arrives and confirms history Did you review nursing and triage notes (agree or disagree)? Why? @ -I reviewed and agree with nursing and triage notes Were old charts reviewed (outside hosp., previous admission, EMS record, old EKG, old radiological studies, urgent care reports/EKG's, half-way records)? Report findings @ -No old charts were reviewed Differential Diagnosis (chest pain, altered mental status, abdominal pain women, abdominal pain men, vaginal bleeding, weakness, fever, dyspnea, syncope, headache, dizziness, GI bleed, back pain, seizure, CVA, palpatations, mental health)? @ -Differential Altered Mental Status: Hypoglycemia, DKA, hypercapnia, ETOH, overdose, CO poisoning, trauma, myxedema coma, HTN encephalopathy, infection, encephalitis, psychosis, intercranial hemorrhage, hepatic encephalopathy, meningitis, CVA, this is not meant to be an all-inclusive list EKG interpreted by me (3pts min.). @ -As above X-rays interpreted by me (1pt min.). @ -Chest x-ray does not reveal acute process CT interpreted by me (1pt min.). @ -Or reviewed U/S interpreted by me (1pt. min.). @ -None done What testing was considered but not performed or refused? (CT, X-rays, U/S, labs)? Why? @ -None What meds were considered but not given or refused? Why? @ -None Did you discuss the management of the patient with other professionals (professionals i.e. , PA, UROLOGIC NURSE, lab, RT, psych nurse, addiction social worker, bag sealer, teacher, sheriff's officer, case technician)? Give summary @ -Case was discussed with Dr. Smith, who will admit, and Dr. Pacheco Was smoking cessation discussed for >3mins.? @ -No Was critical care preformed (if so, how long)? @ -No Were there social determinants of health that impacted care today? How? (Homelessness, low income, unemployed, alcoholism, drug addiction, transportation, low edu. Level, literacy, decrease access to med. care, assisted, rehab)? @ -No Was there de-escalation of care discussed even if they declined (Discuss DNR or withdrawal of care, Hospice)? DNR status @ -No What co-morbidities impacted this encounter? (DM, HTN, Smoking, COPD, CAD, Cancer, CVA, ARF, Chemo, Hep., AIDS, mental health diagnosis, sleep apnea, morbid obesity)? @ -None Was patient admitted / discharged? Hospital course, mention meds given and route, prescriptions, significant lab abnormalities, going to OR and other pertinent info. @ -Patient has some dehydration however not entirely clear because of change in mental status. Family does have concerns patient generally has been declining and does question if she could be a candidate for hospice. This will be deferred to admitting physician. Undiagnosed new problem with uncertain prognosis? @ -No Drug Therapy requiring intensive monitoring for toxicity (Heparin, Nitro, Insulin, Cardizem)? @ -No Were any procedures done? @ -No Diagnosis/symptom? @ -Altered mental status, dehydration Acute, or Chronic, or Acute on Chronic? @ -Acute, acute Uncomplicated (without systemic symptoms) or Complicated (systemic symptoms)? @ -default Side effects of treatment? @ -No Exacerbation, Progression, or Severe Exacerbation? @ -No Poses a threat to life or bodily function? How? (Chest pain, USA, ME, pneumonia, PE, COPD, DKA, ARF, appy, cholecystitis, CVA, Diverticulitis, Homicidal, Gloria cidal, threat to staff... and all critical care pts) @ -No - Lab Data Result diagrams: 01/07/23 11:24 01/07/23 11:24 Lab Results 01/07/23 01/07/23 01/07/23 Range/Units 11:24 11:24 11:24 WBC 10.0 (3.8-10.6) k/uL RBC 5.13 (3.80-5.40) m/uL Hgb 15.5 (11.4-16.0) gm/dL Hct 46.8 H (34.0-46.0) % MCV 91.3 (80.0-100.0) fL MCH 30.3 (25.0-35.0) pg MCHC 33.1 (31.0-37.0) g/dL RDW 13.8 (11.5-15.5) % Plt Count 200 (150-450) k/uL MPV 8.3 Neutrophils % 89 % Lymphocytes % 4 % Monocytes % 2 % Eosinophils % 3 % Basophils % 0 % Neutrophils # 8.9 H (1.3-7.7) k/uL Lymphocytes # 0.4 L (1.0-4.8) k/uL Monocytes # 0.2 (0-1.0) k/uL Eosinophils # 0.3 (0-0.7) k/uL Basophils # 0.0 (0-0.2) k/uL PT 11.0 (9.0-12.0) sec INR 1.1 (<1.2) APTT 21.6 L (22.0-30.0) sec Sodium (137-145) mmol/L Potassium (3.5-5.1) mmol/L Chloride (98-107) mmol/L Carbon Dioxide (22-30) mmol/L Anion Gap mmol/L BUN (7-17) mg/dL Creatinine (0.52-1.04) mg/dL Est GFR (CKD-EPI)AfAm (>60 ml/min/1.73 sqM) Est GFR (CKD-EPI)NonAf (>60 ml/min/1.73 sqM) Glucose (74-99) mg/dL Calcium (8.4-10.2) mg/dL Total Bilirubin (0.2-1.3) mg/dL AST (14-36) U/L ALT (4-34) U/L Alkaline Phosphatase (38-126) U/L Troponin I (0.000-0.034) ng/mL Total Protein (6.3-8.2) g/dL Albumin (3.5-5.0) g/dL Urine Color Yellow Urine Appearance Turbid H (Clear) Urine pH 6.0 (5.0-8.0) Ur Specific Parmele 1.028 (1.001-1.035) Urine Protein Trace H (Negative) Urine Glucose (UA) Negative (Negative) Urine Ketones 1+ H (Negative) Urine Blood Negative (Negative) Urine Nitrite Negative (Negative) Urine Bilirubin Negative (Negative) Urine Urobilinogen <2.0 (<2.0) mg/dL Ur Leukocyte Esterase Negative (Negative) Urine RBC 3 (0-5) /hpf Uric Acid Crystals Few H (None) /hpf Urine Mucus Rare H (None) /hpf 01/07/23 01/07/23 Range/Units 11:24 11:24 WBC (3.8-10.6) k/uL RBC (3.80-5.40) m/uL Hgb (11.4-16.0) gm/dL Hct (34.0-46.0) % MCV (80.0-100.0) fL MCH (25.0-35.0) pg MCHC (31.0-37.0) g/dL RDW (11.5-15.5) % Plt Count (150-450) k/uL MPV Neutrophils % % Lymphocytes % % Monocytes % % Eosinophils % % Basophils % % Neutrophils # (1.3-7.7) k/uL Lymphocytes # (1.0-4.8) k/uL Monocytes # (0-1.0) k/uL Eosinophils # (0-0.7) k/uL Basophils # (0-0.2) k/uL PT (9.0-12.0) sec INR (<1.2) APTT (22.0-30.0) sec Sodium 134 L (137-145) mmol/L Potassium 4.6 (3.5-5.1) mmol/L Chloride 102 (98-107) mmol/L Carbon Dioxide 21 L (22-30) mmol/L Anion Gap 11 mmol/L BUN 37 H (7-17) mg/dL Creatinine 1.22 H (0.52-1.04) mg/dL Est GFR (CKD-EPI)AfAm 49 (>60 ml/min/1.73 sqM) Est GFR (CKD-EPI)NonAf 43 (>60 ml/min/1.73 sqM) Glucose 104 H (74-99) mg/dL Calcium 10.7 H (8.4-10.2) mg/dL Total Bilirubin 0.5 (0.2-1.3) mg/dL AST 17 (14-36) U/L ALT 17 (4-34) U/L Alkaline Phosphatase 56 (38-126) U/L Troponin I <0.012 (0.000-0.034) ng/mL Total Protein 6.4 (6.3-8.2) g/dL Albumin 3.8 (3.5-5.0) g/dL Urine Color Urine Appearance (Clear) Urine pH (5.0-8.0) Ur Specific [place] (1.001-1.035) Urine Protein (Negative) Urine Glucose (UA) (Negative) Urine Ketones (Negative) Urine Blood (Negative) Urine Nitrite (Negative) Urine Bilirubin (Negative) Urine Urobilinogen (<2.0) mg/dL Ur Leukocyte Esterase (Negative) Urine RBC (0-5) /hpf Uric Acid Crystals (None) /hpf Urine Mucus (None) /hpf Disposition Clinical Impression: Altered mental status, Dehydration Disposition: ADMITTED IP TO THIS [facility] Is patient prescribed a controlled substance at d/c from ED?: No Referrals: Santana Pacheco MD [Primary Care Provider] - 1-2 days Time of Disposition: 13:16
--- NOTE | 2023-01-07 11:02 | CT ---
EXAMINATION TYPE: CT brain wo con DATE OF EXAM: 01/07/2023 COMPARISON: 07/30/2022 INDICATION: Altered mental status DLP: 1099.4 mGycm, Automated exposure control for dose reduction was used. CONTRAST: None CT of the brain is performed utilizing 3 mm thick sections through the posterior fossa and 3 mm thick sections through the remaining calvarium. Study is performed within 24 hours of arrival to the hosp ital. No abnormal hyperdensity is present to suggest an acute intracranial hemorrhage. No mass lesion is evident. No acute infarcts are evident. There is some hypodensity within the white matter of the trilobar karyn on. Some chronic appearing white matter ischemic changes may be present. Ventricles and sulci are prominent for the patient age. Paranasal sinuses and mastoid air cells within the [id number] are clear. IMPRESSIONS: 1. Atrophy with some mild periventricular white matter ischemic-type changes.
--- NOTE | 2023-01-07 11:04 | XR ---
EXAMINATION TYPE: XR chest 2V DATE OF EXAM: 01/07/2023 COMPARISON: None INDICATION: Altered mental status TECHNIQUE: Frontal and lateral views of the chest are obtained. FINDINGS: The heart size is normal. The pulmonary vasculature is normal. The lungs are clear. IMPRESSION: 1. No acute pulmonary process.
[2023-01-07 11:46] LABS: Basophils % (A) 0 %; Eosinophils # (A) 0.3 k/uL (0-0.7); Eosinophils % (A) 3 %; HCT 46.8 % (34.0-46.0); HGB 15.5 gm/dL (11.4-16.0); Lymphocytes # (A) 0.4 k/uL (1.0-4.8); Lymphocytes % (A) 4 %; MCH 30.3 pg (25.0-35.0); MCHC 33.1 g/dL (31.0-37.0); MCV 91.3 fL (80.0-100.0); Mean Platelet Volume 8.3; Monocytes # (A) 0.2 k/uL (0-1.0); Monocytes % (A) 2 %; Neutrophils # (A) 8.9 k/uL (1.3-7.7); Neutrophils % (A) 89 %; Platelet Count 200 k/uL (150-450); RBC 5.13 m/uL (3.80-5.40); RDW 13.8 % (11.5-15.5)
[2023-01-07 11:56] LABS: Albumin 3.8 g/dL (3.5-5.0); Calcium 10.7 mg/dL (8.4-10.2); Potassium 4.6 mmol/L (3.5-5.1); Total Bilirubin 0.5 mg/dL (0.2-1.3); Total Protein 6.4 g/dL (6.3-8.2)
[2023-01-07 11:58] LABS: INR 1.1 (<1.2)
[2023-01-07 12:00] LABS: Partial Thromboplastin Time 21.6 sec (22.0-30.0)
[2023-01-07 12:55] LABS: Appearance,Urine Turbid (Clear); Bilirubin,Urine Negative (Negative); Blood,Urine Negative (Negative); Color,Urine Yellow; Glucose,Urine (UA) Negative (Negative); Ketones,Urine 1+ (Negative); Leukocyte Esterase,Urine Negative (Negative); Mucus,Urine Rare /hpf; Nitrite,Urine Negative (Negative); Protein,Urine Trace (Negative); RBC,Urine 3 /hpf (0-5); Specific Gravity,Urine 1.028 (1.001-1.035); Uric Acid Crystals,Urine Few /hpf; Urobilinogen,Urine <2.0 mg/dL (<2.0)
[2023-01-07] MEDS ORDERED: NALOXONE 0.4 MG/ML 1 ML VIAL IV PRN (13:17)
[2023-01-07] MEDS: SODIUM CHLORIDE 0.9% 1,000 ML IV SCH (14:21)
[2023-01-07] MEDS: DIVALPROEX SPRINKLE 125 MG CAP.SPRINK PO SCH (20:16)
[2023-01-07] MEDS: ALPRAZolam 0.25 MG TAB PO PRN (20:16)
[2023-01-08] MEDS: SODIUM CHLORIDE 0.9% 1,000 ML IV SCH ×3 (04:04→19:37)
[2023-01-08 10:36] LABS: ALT 16 U/L (4-34); AST 17 U/L (14-36); African American GFR (CKD) 69 (>60 ml/min/1.73 sqM); Albumin 2.9 g/dL (3.5-5.0); Albumin/Globulin Ratio 1.3; Alkaline Phosphatase 48 U/L (38-126); Anion Gap 8 mmol/L; Blood Urea Nitrogen 30 mg/dL (7-17); Calcium 9.3 mg/dL (8.4-10.2); Carbon Dioxide 21 mmol/L (22-30); Chloride 105 mmol/L (98-107); Globulin 2.2 g/dL; Glucose 82 mg/dL (74-99); Non-African American GFR(CKD) 60 (>60 ml/min/1.73 sqM); Potassium 4.3 mmol/L (3.5-5.1); Sodium 134 mmol/L (137-145); Total Bilirubin 0.4 mg/dL (0.2-1.3); Total Protein 5.1 g/dL (6.3-8.2)
[2023-01-08] MEDS: FAMOTIDINE 20 MG TAB PO SCH (10:41)
[2023-01-08 10:42] LABS: Basophils % (A) 0 %; Eosinophils # (A) 0.3 k/uL (0-0.7); Eosinophils % (A) 4 %; HCT 42.7 % (34.0-46.0); HGB 13.7 gm/dL (11.4-16.0); Lymphocytes # (A) 0.6 k/uL (1.0-4.8); Lymphocytes % (A) 8 %; MCHC 32.2 g/dL (31.0-37.0); MCV 93.1 fL (80.0-100.0); Mean Platelet Volume 9.1; Monocytes # (A) 0.2 k/uL (0-1.0); Monocytes % (A) 2 %; Neutrophils # (A) 7.2 k/uL (1.3-7.7); Neutrophils % (A) 86 %; Platelet Count 148 k/uL (150-450); RBC 4.58 m/uL (3.80-5.40); RDW 13.9 % (11.5-15.5); WBC 8.4 k/uL (3.8-10.6)
--- NOTE | 2023-01-08 11:58 | P.CNNES ---
History of Present Illness Consult date: 01/08/23 Requesting physician: Alec Horne Reason for Consult: AMS History of Present Illness: Patient is a 77-year-old female came to the hospital by ambulance yesterday at 10:12 AM for altered mental status and rash. Patient not able to provide any history because of advanced dementia. Family members not available at this ti me. As per report from the nurse, it was reported by family members that patient's dementia has been getting worse. She is more lethargic, sleeping a lot, not wants to eat, don't want to take medications. She recently suffered from a UTI and was given Bactrim that was started on 01/01/2023. Stop started noticing facial and tongue swelling and generalized rash therefore she was sent to the hospital. EMS flow sheet revealed when they arrived, found patient laying in the bed. Family mentions that she has been weak and developed a rash in middle of the night. Patient has dementia and not able to verbalize well. Patient was alert and behaving baseline per family and staff. Physical examination revealed rash covering her face abdomen and chest. Patient was afebrile. Patient has just c ompleted 10 day course of antibiotic for UTI. IV line was started for dehydration. Vitals at the scene shows blood pressure 126/71, pulse rate 83 respirations 16 saturation 94% and blood sugar 143. Vital signs arrival blood pressure 113/69, pulse rate 79 to patient 98.4. Blood test shows WBC 10.0, normal CBC, PT/PTT, sodium 134 potassium 4.6, BUN 37 creatinine 1.22, calcium 10.7, hepatic panel normal, troponin negative, UA negative, Depakote <10.0. CT head revealed atrophy with some mild periventricular white matter ischemic type changes. Paranasal sinuses and mastoid air cells are clear. I personally reviewed CT head, agree with the findings. EKG and chest x-ray are normal. Patient has been seen by myself in July 2022 for possible TIA manifesting with transient facial droop, that resolved in 2 hours. Patient does have advanced dementia. Carotid Doppler was normal. Lipids with LDL 158, cholesterol 217. Patient was started on aspirin 81 mg. 2-D echo revealed normal left ventricular systolic function, no valvular abnormalities of significance. EF was 55-60%. Left atrial size is normal. Review of Systems Mainly due to advanced dementia. ROS unobtainable: due to mental status Past Medical History Past Medical History: Dementia Additional Past Medical History / Comment(s): diverticulitis History of Any Multi-Drug Resistant Organisms: Unobtainable Past Surgical History: Unable to Obtain Past Psychological History: Unable to Obtain Smoking Status: Unknown if ever smoked Past Alcohol Use History: Unable to Obtain Past Drug Use History: Unable to Obtain Medications and Allergies Home Medications Medication Instructions Recorded Confirmed Type ALPRAZolam [Xanax] 0.25 mg PO BID PRN 07/30/22 01/07/23 History Acetaminophen [Tylenol Arthritis] 650 mg PO TID PRN 07/30/22 01/07/23 History Cyanocobalamin (Vitamin B-12) 1,000 mcg PO DAILY@0800 07/30/22 01/07/23 History [Vitamin B-12] Divalproex Sprinkle [Depakote 125 mg PO DAILY@1800 07/30/22 01/07/23 History Sprinkle] Famotidine [Pepcid] 20 mg PO DAILY@0800 07/30/22 01/07/23 History Mirtazapine [Remeron Soluspan] 15 mg PO HS 07/30/22 01/07/23 History Sennosides/Docusate Sodium [Senna 1 tab PO DAILY@0800 07/30/22 01/07/23 History Plus 8.6-50 mg Tablet] busPIRone HCL [Buspar] 7.5 mg PO BID@0800,1600 07/30/22 01/07/23 History Aspirin 81 mg PO DAILY@0800 01/07/23 01/07/23 History Ketoconazole 2% Shampoo [Nizoral] 1 applic TOPICAL TUFR 01/07/23 01/07/23 H istory Loperamide [Imodium] 2 - 4 mg PO TID PRN MDD 8mg 01/07/23 01/07/23 History Midodrine HCl [ProAmantine] 2.5 mg PO TID@0500,1300,2100 01/07/23 01/07/23 History Ultra Collagen + Vitamin C 1 tab PO DAILY@0800 01/07/23 01/07/23 History Allergies Allergy/AdvReac Type Severity Reaction Status Date / Time sulfamethoxazole Allergy Anaphylaxis Verified 01/08/23 12:03 [From Bactrim] trimethoprim [From Bactrim] Allergy Anaphylaxis Verified 01/08/23 12:03 Physical Examination - Vital Signs Vital Signs: Vital Signs Temp Pulse Pulse Resp BP BP Pulse Ox 01/08/23 07:51 98.7 F 78 18 107/65 94 L 01/08/23 02:00 98.4 F 92 16 122/71 96 01/07/23 20:00 98.4 F 16 123/68 96 01/07/23 11:00 80 16 109/62 96 01/07/23 10:12 98.4 F 79 16 113/69 95 Intake and Output 01/07/23 01/08/23 01/08/23 22:59 06:59 14:59 Other: Voiding Method External Catheter # Bowel Movements 1 Patient is an elderly female, in no acute distress. Patient is alert awake, with advanced dementia. Patient was able to tell her name Ron, but not her age, month or the year. She said "I'm old". She was able to tell me object "pen", but not eyeglasses. She mumbles often with some incomprehensible speech. She can repeat. Attention, concentration and fund of knowledge is significantly impaired because of advanced dementia. Patient has significantly positive palmomental reflex bilaterally, positive visuospatial apraxia. On cranial nerve examination, pupils are equal, round and reacting to light, visual quiñones could not be tested but she does blink to visual threat bilaterally. Extraocular muscles are intact with no nystagmus. Face is symmetric, although she has slight droopiness of the right corner of mouth, which is likely baseline, tongue protrudes to the midline. Palatal elevation and sensation normal, hearing is decreased and shoulder shrug patient could not follow directions or could assess for facial sensation. On muscle strength testing, there is no pronator drift and the strength is normal in arms distally and proximally. In the lower limbs, her ankles appears normal. Patient was able to lift her legs off the bed equally. Deep tendon reflexes are symmetric 2 at the biceps, 2 brachioradialis, 1 at the knees and ankles and plantars are withdrawal bilaterally. Sensory to touch could not be assessed. Cerebellar functions could not be checked because of dementia. Tone and bulk of muscles normal. Gait deferred.. On general examination, there is no carotid bruit or murmur, S1-S2 audible. Chest is clear on consultation. Abdomen is soft nontender. No organomegaly, bowel sounds present. Peripheral pulses are present. No edema. Patient has obvious rash on her face, torso and some on the extremities. Results - Laboratory Findings CBC and BMP: 01/08/23 04:52 01/08/23 04:52 Abnormal Lab Findings: Abnormal Labs 01/07/23 01/07/23 01/07/23 11:24 11:24 11:24 Hct 46.8 H Neutrophils # 8.9 H Lymphocytes # 0.4 L APTT 21.6 L Sodium Carbon Dioxide BUN Creatinine Glucose Calcium Urine Appearance Turbid H Urine Protein Trace H Urine Ketones 1+ H Uric Acid Crystals Few H Urine Mucus Rare H 01/07/23 11:24 Hct Neutrophils # Lymphocytes # APTT Sodium 134 L Carbon Dioxide 21 L BUN 37 H Creatinine 1.22 H Glucose 104 H Calcium 10.7 H Urine Appearance Urine Protein Urine Ketones Uric Acid Crystals Urine Mucus Assessment and Plan Assessment: * Altered mental status, likely due to advanced dementia. Patient recently suffered from UTI, which can make dementia further worse. * Allergic rash from antibiotic (Bactrim). * Recent UTI. * Previous history of TIA Plan: * Patient probably has advanced dementia. Dementia often can get worse after acute UTI. * Consider adding Aricept and Namenda. We will discuss with the family. * Carotid Doppler performed 07/31/2022 was normal, with less than 25% stenosis in both ICA, antegrade flow in both vertebral arteries. * Lipids with LDL 158, cholesterol 217. Patient was started on aspirin 81 mg. * Hemoglobin A1c 5.5 09/21/2021 * TSH is normal. * 2-D echo from July 2022 revealed normal left ventricular systolic function, no valvular abnormalities of significance. EF was 55-60%. Left atrial size is normal. * Patient on aspirin 81 mg daily. * Neurology will follow clinically. Thank you for the consult.
[2023-01-08] MEDS: ASPIRIN 81 MG PO SCH (13:45)
[2023-01-08] MEDS: MAG HYDROX/AL HYDROX/SIMETH 30 ML, LIDOCAINE VISCOUS 2% 30 ML, diphenhydrAMINE ELIXIR 7... PO SCH ×8 (16:59→21:03)
--- NOTE | 2023-01-08 18:17 | P.HPIM ---
History of Present Illness H&P Date: 01/07/23 Chief Complaint: Altered mental status/failure to thrive 77-year-old female presenting to emergency department with concern with change in mental status. Patient is a poor historian and does not offer significant history. Patient arrives to [facility]. Unclear last known well. Patient reportedly was recently treated for antibiotic, Bactrim for urinary tract infection. Patient did develop a rash sometime recently. CT head revealed atrophy with some mild periventricular white matter ischemic type changes. Paranasal sinuses and mastoid air cells are clear. I personally reviewed CT head, agree with the findings. EKG and chest x-ray are normal. Patient has been seen by myself in July 2022 for possible TIA manifesting with transient facial droop, that resolved in 2 hours. Patient does have advanced dementia. Carotid Doppler was normal. Lipids with LDL 158, cholesterol 217. Patient was started on aspirin 81 mg. 2-D echo revealed normal left ventricular systolic function, no valvular abnormalities of significance. EF was 55-60%. Left atrial size is normal. Review of Systems ROS unobtainable: due to mental status Past Medical History Past Medical History: Dementia Additional Past Medical History / Comment(s): diverticulitis History of Any Multi-Drug Resistant Organisms: Unobtainable Past Surgical History: Unable to Obtain Past Psychological History: Unable to Obtain Smoking Status: Unknown if ever smoked Past Alcohol Use History: Unable to Obtain Past Drug Use History: Unable to Obtain Medications and Allergies Home Medications Medication Instructions Recorded Confirmed Type ALPRAZolam [Xanax] 0.25 mg PO BID PRN 07/30/22 01/07/23 History Acetaminophen [Tylenol Arthritis] 650 mg PO TID PRN 07/30/22 01/07/23 History Cyanocobalamin (Vitamin B-12) 1,000 mcg PO DAILY@0800 07/30/22 01/07/23 History [Vitamin B-12] Divalproex Sprinkle [Depakote 125 mg PO DAILY@1800 07/30/22 01/07/23 History Sprinkle] Famotidine [Pepcid] 20 mg PO DAILY@0800 07/30/22 01/07/23 History Mirtazapine [Remeron Soluspan] 15 mg PO HS 07/30/22 01/07/23 History Sennosides/Docusate Sodium [Senna 1 tab PO DAILY@0800 07/30/22 01/07/23 History Plus 8.6-50 mg Tablet] busPIRone HCL [Buspar] 7.5 mg PO BID@0800,1600 07/30/22 01/07/23 History Aspirin 81 mg PO DAILY@0800 01/07/23 01/07/23 History Ketoconazole 2% Shampoo [Nizoral] 1 applic TOPICAL TUFR 01/07/23 01/07/23 History Loperamide [Imodium] 2 - 4 mg PO TID PRN MDD 8mg 01/07/23 01/07/23 History Midodrine HCl [ProAmantine] 2.5 mg PO TID@0500,1300,2100 01/07/23 01/07/23 History Ultra Collagen + Vitamin C 1 tab PO DAILY@0800 01/07/23 01/07/23 History Allergies Allergy/AdvReac Type Severity Reaction Status Date / Time sulfamethoxazole Allergy Anaphylaxis Verified 01/08/23 12:03 [From Bactrim] trimethoprim [From Bactrim] Allergy Anaphylaxis Verified 01/08/23 12:03 Physical Exam Vitals: Vital Signs Temp Pulse Resp BP Pulse Ox 01/07/23 11:00 80 16 109/62 96 01/07/23 10:12 98.4 F 79 16 113/69 95 Intake and Output 01/07/23 01/07/23 01/07/23 06:59 14:59 22:59 Output Total 300 Balance -300 Output: Urine 300 Straight 300 Other: Weight 47.627 kg PHYSICAL EXAMINATION: GENERAL: The patient is alert and oriented x3, not in any acute distress. Well developed, well nourished. HEENT: Pupils are round and equally reacting to light. EOMI. No scleral icterus. No conjunctival pallor. Normocephalic, atraumatic. No pharyngeal erythema. No thyromegaly. CARDIOVASCULAR: S1 and S2 present. No murmurs, rubs, or gallops. PULMONARY: Chest is clear to auscultation, no wheezing or crackles. ABDOMEN: Soft, nontender, nondistended, normoactive bowel sounds. No palpable organomegaly. MUSCULOSKELETAL: No joint swelling or deformity. EXTREMITIES: No cyanosis, clubbing, or pedal edema. NEUROLOGICAL: Gross neurological examination did not reveal any focal deficits. SKIN: No rashes. Results CBC & Chem 7: 01/08/23 04:52 01/08/23 04:52 Labs: Abnormal Lab Results - Last 24 Hours (Table) 01/07/23 01/07/23 01/07/23 Range/Units 11:24 11:24 11:24 Hct 46.8 H (34.0-46.0) % Neutrophils # 8.9 H (1.3-7.7) k/uL Lymphocytes # 0.4 L (1.0-4.8) k/uL APTT 21.6 L (22.0-30.0) sec Sodium (137-145) mmol/L Carbon Dioxide (22-30) mmol/L BUN (7-17) mg/dL Creatinine (0.52-1.04) mg/dL Glucose (74-99) mg/dL Calcium (8.4-10.2) mg/dL Urine Appearance Turbid H (Clear) Urine Protein Trace H (Negative) Urine Ketones 1+ H (Negative) Uric Acid Crystals Few H (None) /hpf Urine Mucus Rare H (None) /hpf 01/07/23 Range/Units 11:24 Hct (34.0-46.0) % Neutrophils # (1.3-7.7) k/uL Lymphocytes # (1.0-4.8) k/uL APTT (22.0-30.0) sec Sodium 134 L (137-145) mmol/L Carbon Dioxide 21 L (22-30) mmol/L BUN 37 H (7-17) mg/dL Creatinine 1.22 H (0.52-1.04) mg/dL Glucose 104 H (74-99) mg/dL Calcium 10.7 H (8.4-10.2) mg/dL Urine Appearance (Clear) Urine Protein (Negative) Urine Ketones (Negative) Uric Acid Crystals (None) /hpf Urine Mucus (None) /hpf Assessment and Plan Assessment: 1. Altered mental status; TIA versus advancing dementia - CT head revealed atrophy with some mild periventricular white matter ischemic type changes. Paranasal sinuses and mastoid air cells are clear. - Neurology on board and deems change in mental status likely related to advancing dementia versus UTI superimposed on dementia - Patient had carotid Doppler completed in July 2022 which is less than 25% stenosis in both internal carotid arteries -2-D echo completed in July 2022 reveals normal LVEF with no valve abnormalities -Patient is recommended to continue with aspirin 81 mg daily - No further neurological workup is recommended 2. Mild renal injury/dehydration; IV fluid hydration;; monitor strict ANIL's, daily weights and electrolytes; avoid nephrotoxins and hypotension 3. Mild hyponatremia; continue with IV fluid hydration normal saline at rate of 75 mL an hour; we will monitor electrolytes closely and supplement as needed 4. ALLERGIC reaction; related to Bactrim used for treatment of UTI; rash is fading away 5. Dementia/depression with behavior disturbance - Patient is currently on BuSpar 7.5 mg twice a day along with Remeron 15 mg by mouth daily at bedtime and Depakote 125 mg daily -- Neurology recommendsing Aricept and Namenda advancing dementia
--- NOTE | 2023-01-08 18:22 | P.PN ---
Subjective Progress Note Date: 01/08/23 77-year-old female presenting to emergency department with concern with change in mental status. Patient is a poor historian and does not offer significant history. Patient arrives to [facility]. Unclear last known well. Patient reportedly was recently treated for antibiotic, Bactrim for urinary tract infection. Patient did develop a rash sometime recently. CT head revealed atrophy with some mild periventricular white matter ischemic type changes. Paranasal sinuses and mastoid air cells are clear. I personally reviewed CT head, agree with the findings. EKG and chest x-ray are normal. Patient has been seen by myself in July 2022 for possible TIA manifesting with transient facial droop, that resolved in 2 hours. Patient does have advanced dementia. Carotid Doppler was normal. Lipids with LDL 158, cholesterol 217. Patient was started on aspirin 81 mg. 2-D echo revealed nor mal left ventricular systolic function, no valvular abnormalities of significance. EF was 55-60%. Left atrial size is normal. --Patient probably has advanced dementia. Dementia often can get worse after acute UTI. --Consider adding Aricept and Namenda. We will discuss with the family. -Carotid Doppler performed 07/31/2022 was normal, with less than 25% stenosis in both ICA, antegrade flow in both vertebral arteries. -Hemoglobin A1c 5.5 09/21/2021 -TSH is normal. -2-D echo from July 2022 revealed normal left ventricular systolic function, no valvular abnormalities of significance. EF was 55-60%. Left atrial size is normal. -Patient on aspirin 81 mg daily. PT/OT is consulted for evaluation and recommendations on discharge planning Objective - Vital Signs Vital signs: Vital Signs Temp 99.5 F 01/08/23 14:42 Pulse 62 01/08/23 14:42 Resp 18 01/08/23 14:42 BP 107/62 01/08/23 14:42 Pulse Ox 95 01/08/23 14:42 FiO2 Intake & Output 01/07/23 01/08/23 01/08/23 18:59 06:59 18:59 Output Total 300 Balance -300 Weight 47.627 kg 47.627 kg Output: Urine 300 Straight 300 Other: Voiding Method External Catheter Diaper Incontinent # Voids 3 # Bowel Movements 1 2 - Exam GENERAL: The patient is alert and oriented x3, not in any acute distress. Well developed, well nourished. HEENT: Pupils are round and equally reacting to light. EOMI. No scleral icterus. No conjunctival pallor. Normocephalic, atraumatic. No pharyngeal erythema. No thyromegaly. CARDIOVASCULAR: S1 and S2 present. No murmurs, rubs, or gallops. PULMONARY: Chest is clear to auscultation, no wheezing or crackles. ABDOMEN: Soft, nontender, nondistended, normoactive bowel sounds. No palpable organomegaly. MUSCULOSKELETAL: No joint swelling or deformity. EXTREMITIES: No cyanosis, clubbing, or pedal edema. NEUROLOGICAL: Gross neurological examination did not reveal any focal deficits. SKIN: Rash anterior chest wall and arms, feeding - Labs CBC & Chem 7: 01/08/23 04:52 01/08/23 04:52 Labs: Abnormal Lab Results - Last 24 Hours (Table) 01/08/23 01/08/23 Range/Units 04:52 04:52 Plt Count 148 L (150-450) k/uL Lymphocytes # 0.6 L (1.0-4.8) k/uL Sodium 134 L (137-145) mmol/L Carbon Dioxide 21 L (22-30) mmol/L BUN 30 H (7-17) mg/dL Total Protein 5.1 L (6.3-8.2) g/dL Albumin 2.9 L (3.5-5.0) g/dL Assessment and Plan Assessment: 1. Altered mental status; TIA versus advancing dementia - CT head revealed atrophy with some mild periventricular white matter ischemic type changes. Paranasal sinuses and mastoid air cells are clear. - Neurology on board and deems change in mental status likely related to advancing dementia versus UTI superimposed on dementia - Patient had carotid Doppler completed in July 2022 which is less than 25% stenosis in both internal carotid arteries -2-D echo completed in July 2022 reveals normal LVEF with no valve abnormalities -Patient is recommended to continue with aspirin 81 mg daily - No further neurological workup is recommended 2. Mild renal injury/dehydration; IV fluid hydration;; monitor strict ANIL's, daily weights and electrolytes; avoid nephrotoxins and hypotension 3. Mild hyponatremia; continue with IV fluid hydration normal saline at rate of 75 mL an hour; we will monitor electrolytes closely and supplement as needed 4. ALLERGIC reaction; related to Bactrim used for treatment of UTI; rash is fading away 5. Dementia/depression with behavior disturbance - Patient is currently on BuSpar 7.5 mg twice a day along with Remeron 15 mg by mouth daily at bedtime and Depakote 125 mg daily -- Neurology recommendsing Aricept and Namenda advancing dementia
[2023-01-08] MEDS: DIVALPROEX SPRINKLE 125 MG CAP.SPRINK PO SCH (18:45)
[2023-01-09] MEDS: SODIUM CHLORIDE 0.9% 1,000 ML IV SCH (05:42)
[2023-01-09] MEDS: MAG HYDROX/AL HYDROX/SIMETH 30 ML, LIDOCAINE VISCOUS 2% 30 ML, diphenhydrAMINE ELIXIR 7... PO SCH ×4 (09:05)
[2023-01-09] MEDS: ASPIRIN 81 MG PO SCH (09:05)
[2023-01-09] MEDS: FAMOTIDINE 20 MG TAB PO SCH (09:05)
[2023-01-09 11:36] VITALS: BP 111/66; PULSE 68; RESP 16; TEMP 98.5
[2023-01-09] MEDS: ALPRAZolam 0.25 MG TAB PO PRN (13:56)
[2023-01-09 14:01] VITALS: BMI 20.5
--- NOTE | 2023-01-09 14:08 | P.DS ---
Providers Date of admission: 01/07/23 13:17 Attending physician: Marlen Montesinos MD Consults: 01/07/23 13:17 Consult Physician Routine Consulting Provider: Sd Holland Consult Reason/Comments: ams Do you want consulting provider notified?: Yes Primary care physician: Santana Pacheco Hospital Course: Diagnoses: 1. Altered mental status; secondary to advancing dementia 2. Mild renal injury/dehydration; improved 3. Mild hyponatremia; improved 4. ALLERGIC reaction; related to Bactrim used for treatment of UTI; rash is fading away. No need for further antibiotic. Bactrim was stopped and recommen ded not to be given again to the patient 5. Dementia/depression with behavior disturbance Hospital course: 77-year-old female presenting to emergency department with concern with change in mental status. Patient is a poor historian and does not offer significant history. Patient arrives to [facility]. Unclear last known well. Patient reportedly was recently treated for antibiotic, Bactrim for urinary tract infection. Patient did develop a rash sometime recently. Patient evaluated by neurologist and found her to have advanced dementia No further UTI signs and symptoms, no need for further antibiotic. Rash improved. Bactrim was discontinued and at the to her ALLERGY list. Patient is at baseline Patient was cleared for discharge by neurologist We recommend palliative care consult as an outpatient Physical therapy evaluated the patient We recommend patient discharged back to her [facility] Overall prognosis is guarded Problems and management plan were discussed with the patient and he verbalized understanding and acceptance Patient was found stable and can be discharged home in guarded prognosis however he needs follow-up as an outpatient. Patient was instructed to follow up with PCP within one week and patient agrees Physical exam -Gen: patient is a awake and alert but confused at baseline 3, no distress. Cannot name objects, hold on her pet doll in her lap CVS: S1-S2, RRR, no murmur Lungs: B/L CTA, no wheezing Abdomen: soft, no distention, no tenderness, positive bowel sounds Extremity: no leg edema or induration Time spent more than 35 minutes Plan - Discharge Summary New Discharge Prescriptions: Continue Sennosides/Docusate Sodium [Senna Plus 8.6-50 mg Tablet] 1 tab PO DAILY@0800 Mirtazapine [Remeron Soluspan] 15 mg PO HS busPIRone HCL [Buspar] 7.5 mg PO BID@0800,1600 Famotidine [Pepcid] 20 mg PO DAILY@0800 Divalproex Sprinkle [Depakote Sprinkle] 125 mg PO DAILY@1800 Acetaminophen [Tylenol Arthritis] 650 mg PO TID PRN PRN Reason: Pain Ketoconazole 2% Shampoo [Nizoral] 1 applic TOPICAL TUFR Ultra Collagen + Vitamin C 1 tab PO DAILY@0800 Aspirin 81 mg PO DAILY@0800 Loperamide [Imodium] 2 - 4 mg PO TID PRN MDD 8mg PRN Reason: Diarrhea ALPRAZolam [Xanax] 0.25 mg PO BID PRN 2 Days #4 tab PRN Reason: Anxiety Discontinued Cyanocobalamin (Vitamin B-12) [Vitamin B-12] 1,000 mcg PO DAILY@0800 Midodrine HCl [ProAmantine] 2.5 mg PO TID@0500,1300,2100 Discharge Medication List Acetaminophen [Tylenol Arthritis] 650 mg PO TID PRN 07/30/22 [History] Divalproex Sprinkle [Depakote Sprinkle] 125 mg PO DAILY@1800 07/30/22 [History] Famotidine [Pepcid] 20 mg PO DAILY@0800 07/30/22 [History] Mirtazapine [Remeron Soluspan] 15 mg PO HS 07/30/22 [History] Sennosides/Docusate Sodium [Senna Plus 8.6-50 mg Tablet] 1 tab PO DAILY@0800 07/30/22 [History] busPIRone HCL [Buspar] 7.5 mg PO BID@0800,1600 07/30/22 [History] Aspirin 81 mg PO DAILY@0800 01/07/23 [History] Ketoconazole 2% Shampoo [Nizoral] 1 applic TOPICAL TUFR 01/07/23 [History] Loperamide [Imodium] 2 - 4 mg PO TID PRN MDD 8mg 01/07/23 [History] Ultra Collagen + Vitamin C 1 tab PO DAILY@0800 01/07/23 [History] ALPRAZolam [Xanax] 0.25 mg PO BID PRN 2 Days #4 tab 01/09/23 [Rx] Follow up Appointment(s)/Referral(s): Santana Pacheco MD [Primary Care Provider] - 1-2 days
== END 2023-01-09 15:07 | disposition home or self-care (01) ==
LOC: EC 10:11 → INTOOBSV 13:17 → 4SSUR 13:17 → 5NMEDONC 01-08 03:02 → UNDODISIN 01-09 15:07
PROVIDERS: ADMIT Internal Medicine; ATTEND Internal Medicine
DX: F03.93 Unspecified dementia, unspecified severity, with mood disturbance (principal); E86.0 Dehydration; E87.1 Hypo-osmolality and hyponatremia; L27.0 Generalized skin eruption due to drugs and medicaments taken internally; T36.8X5A Adverse effect of other systemic antibiotics, initial encounter; Z79.899 Other long term (current) drug therapy; Z79.82 Long term (current) use of aspirin; Z88.2 Allergy status to sulfonamides; Z88.1 Allergy status to other antibiotic agents; Z86.73 Personal history of transient ischemic attack (TIA), and cerebral infarction without residual deficits
CPT/HCPCS: 96361 ×4; 96360 ×2; 99285; 36415; 93005; 97162; 97166; 80164; 80053 ×2; 82607; 82746; 84484; 85025 ×2; 85610; 85730; 81001; 71046; 70450; G0378 ×3

== ENCOUNTER 2023-04-02 04:58 | Inpatient (IN) | payer MEDICARE ==
[2023-04-02] MEDS ORDERED: ACETAMINOPHEN TAB 325 MG TAB PO STA (05:15)
[2023-04-02] MEDS ORDERED: ACETAMINOPHEN ORAL SUSP 160 MG/5 ML CUP PO ONE (05:18)
[2023-04-02 06:07] LABS: ALT 14 U/L (4-34); AST 15 U/L (14-36); African American GFR (CKD) >90 (>60 ml/min/1.73 sqM); Albumin 3.3 g/dL (3.5-5.0); Alkaline Phosphatase 33 U/L (38-126); Anion Gap 5 mmol/L; Blood Urea Nitrogen 27 mg/dL (7-17); Calcium 9.8 mg/dL (8.4-10.2); Carbon Dioxide 29 mmol/L (22-30); Chloride 103 mmol/L (98-107); Glucose 102 mg/dL (74-99); Non-African American GFR(CKD) 79 (>60 ml/min/1.73 sqM); Potassium 4.5 mmol/L (3.5-5.1); Sodium 137 mmol/L (137-145); Total Bilirubin 0.4 mg/dL (0.2-1.3); Total Protein 5.4 g/dL (6.3-8.2)
[2023-04-02 06:10] LABS: Basophils # (A) 0.1 k/uL (0-0.2); Basophils % (A) 0 %; Eosinophils # (A) 0.1 k/uL (0-0.7); Eosinophils % (A) 1 %; Lymphocytes # (A) 0.5 k/uL (1.0-4.8); Lymphocytes % (A) 3 %; MCHC 31.1 g/dL (31.0-37.0); MCV 96.7 fL (80.0-100.0); Mean Platelet Volume 7.7; Monocytes # (A) 0.4 k/uL (0-1.0); Monocytes % (A) 2 %; Neutrophils # (A) 17.3 k/uL (1.3-7.7); Neutrophils % (A) 94 %; Platelet Count 203 k/uL (150-450); RBC 4.34 m/uL (3.80-5.40); RDW 15.1 % (11.5-15.5); WBC 18.4 k/uL (3.8-10.6)
[2023-04-02] MEDS ORDERED: SODIUM CHLORIDE 0.9% 1,000 ML IV STA ×2 (06:55→07:51)
--- NOTE | 2023-04-02 06:56 | ED ---
Fever HPI - General Chief Complaint: Allergic Reaction Stated Complaint: Allergic Reaction Time Seen by Provider: 04/02/23 05:57 Source: EMS, RN notes reviewed Mode of arrival: EMS Limitations: altered mental status - History of Present Illness Initial Comments: This is a 77-year-old female who presents to the emergency department for a fever and flushing to the face. Patient is a resident at [facility] and was started on Bactrim for a UTI yesterday. This morning, they noticed that her face appeared red and she had a temperature of 100.7F. Per EMS, [facility] was concerned about an allergic reaction to the Bactrim. However, aside from the facial flushing, patient has no other symptoms to suggest an allergic reaction. Patient has dementia and is unable to provide any history herself. MD Complaint: fever - Related Data Home Medications Medication Instructions Recorded Confirmed Acetaminophen [Tylenol Arthritis] 650 mg PO TID PRN 07/30/22 01/07/23 Divalproex Sprinkle [Depakote 125 mg PO DAILY@1800 07/30/22 01/07/23 Sprinkle] Famotidine [Pepcid] 20 mg PO DAILY@0800 07/30/22 01/07/23 Mirtazapine [Remeron Soluspan] 15 mg PO HS 07/30/22 01/07/23 Sennosides/Docusate Sodium [Senna 1 tab PO DAILY@0800 07/30/22 01/07/23 Plus 8.6-50 mg Tablet] busPIRone HCL [Buspar] 7.5 mg PO BID@0800,1600 07/30/22 01/07/23 Aspirin 81 mg PO DAILY@0800 01/07/23 01/07/23 Ketoconazole 2% Shampoo [Nizoral] 1 applic TOPICAL TUFR 01/07/23 01/07/23 Loperamide [Imodium] 2 - 4 mg PO TID PRN MDD 8mg 01/07/23 01/07/23 Ultra Collagen + Vitamin C 1 tab PO DAILY@0800 01/07/23 01/07/23 Previous Rx's Medication Instructions Recorded ALPRAZolam [Xanax] 0.25 mg PO BID PRN 2 Days #4 tab 01/09/23 Allergies Allergy/AdvReac Type Severity Reaction Status Date / Time sulfamethoxazole Allergy Anaphylaxis Verified 01/08/23 12:03 [From Bactrim] trimethoprim [From Bactrim] Allergy Anaphylaxis Verified 01/08/23 12:03 Review of Systems ROS Statement: Those systems with pertinent positive or pertinent negative responses have been documented in the HPI. ROS Other: All systems not noted in ROS Statement are negative. Past Medical History Past Medical History: Dementia Additional Past Medical History / Comment(s): diverticulitis History of Any Multi-Drug Resistant Organisms: Unobtainable Past Surgical History: Unable to Obtain Additional Past Surgical History / Comment(s): pt's son doesn't think she's had any other surgeries. Past Psychological History: Unable to Obtain Smoking Status: Unknown if ever smoked Past Alcohol Use History: Unable to Obtain Past Drug Use History: Unable to Obtain General Exam Limitations: altered mental status General appearance: alert Head exam: Present: atraumatic, normocephalic, normal inspection Respiratory exam: Present: normal lung sounds bilaterally. Absent: respiratory distress, wheezes, rales, rhonchi, stridor Cardiovascular Exam: Present: regular rate, normal rhythm, normal heart sounds. Absent: systolic murmur, diastolic murmur, rubs, gallop, clicks Neurological exam: Present: alert Psychiatric exam: Present: agitated Skin exam: Present: other (Erythema to the face and chest) Course Vital Signs 04/02/23 04/02/23 04/02/23 05:01 06:52 06:57 Temperature 101.7 F H 99.8 F H Pulse Rate 82 87 Respiratory 18 18 Rate Blood Pressure 132/72 117/78 O2 Sat by Pulse 96 98 Oximetry 04/02/23 08:11 Temperature 97.8 F Pulse Rate 72 Respiratory 20 Rate Blood Pressure 138/92 O2 Sat by Pulse 97 Oximetry Medical Decision Making - Medical Decision Making This is a 77-year-old female who presents to the emergency department for a fever. Was pt. sent in by a medical professional or institution? @ -[facility] Did you speak to anyone other than the patient for history? @ -EMS provided all of the history, as the patient has dementia. Did you review nursing and triage notes? @ -Yes, and I agree, it is accurate with regards to the patient's symptoms. Were old charts reviewed? @ -Discharge summary from 01/09/23 when the patient was admitted for altered mental status. She was apparently on Bactrim for a UTI at that time as well, and had developed a rash. Bactrim was then added to her allergy list. It is unclear why she was then put on Bactrim again. Differential Diagnosis? @ -Differential Fever: Pneumonia, viral URI, endocarditis, myocarditis, pericarditis, otitis, sinusitis, peritonsillar Abscess, retropharyngeal Abscess, epiglottitis, peritonitis, appendicitis, Kimberly cystitis, diverticulitis, hepatitis, colitis, UTI, PID, TOA, pyelonephritis, prostatitis, epididymitis, meningitis, encephalitis, pulmonary embolism, CVA, thyroid storm, pancreatitis, adrenal crisis, cavernous sinus thrombosis, this is not meant to be an all-inclusive list. EKG interpreted by me (3pts min.)? @ -Not obtained X-rays interpreted by me (1pt min.)? @ -Not obtained CT interpreted by me (1pt min.)? @ -Not obtained U/S interpreted by me (1pt. min.)? @ -Not obtained What testing was considered but not performed? (CT, X-rays, U/S, labs)? Why? @ -None What meds were considered but not given? Why? @ -None Did you discuss the management of the patient with other professionals? @ -Yes, Dr. Vang, who accepts the patient for admission. Did you reconcile home meds? @ -No Was smoking cessation discussed for >3mins.? @ -No Was critical care preformed (if so, how long)? @ -No Were there social determinants of health that impacted care today? How? (Homelessness, low income, unemployed, alcoholism, drug addiction, transportation, low edu. Level, literacy, decrease access to med. care, nursing home, rehab)? @ -No Was there de-escalation of care discussed even if they declined? (Discuss DNR or withdrawal of care, Hospice)? @ -No What co-morbidities impacted this encounter? (DM, HTN, Smoking, COPD, CAD, Cancer, CVA, Hep., AIDS, mental health diagnosis, sleep apnea, morbid obesity)? @ -Dementia Was patient admitted / discharged? @ -Admitted. Patient was febrile on arrival with a temperature of 101.7F. She was subsequently given a dose of Tylenol and her temperature reduced to 99.8F. Lab work obtained revealing leukocytosis, elevated lactic acid, and signs of dehydration. Urinalysis is consistent with infection. With the fever, leukocytosis, and confirmed source of infection, patient does meet sepsis criteria. She met septic criteria at 6:52 AM after the source of infection was confirmed. 2L bolus of IV fluids was administered as well based on 30-40 ml/kg fluid requirement. Blood culture and urine cultures obtained and the patient was given a dose of ceftriaxone. Maintenance fluids at 130 mL/hr initiated. Patient admitted to medicine for further management of sepsis secondary to UTI. Undiagnosed new problem with uncertain prognosis? @ -None Drug Therapy requiring intensive monitoring for toxicity (Heparin, Nitro, Insulin, Cardizem)? @ -None Were any procedures done? @ -None Diagnosis/symptom? @ -UTI, Sepsis Acute, or Chronic, or Acute on Chronic? @ -Acute Uncomplicated (without systemic symptoms) or Complicated (systemic symptoms)? @ -Complicated Side effects of treatment? @ -None Exacerbation, Progression, or Severe Exacerbation] @ -Not applicable Poses a threat to life or bodily function? @ -Yes This case was discussed in detail with the attending ED physician, Dr. Porras. Presentation, findings, and treatment plan discussed in detail as well. - Lab Data Result diagrams: 04/02/23 05:39 04/02/23 05:39 Lab Results 04/02/23 04/02/23 04/02/23 Range/Units 05:39 05:39 06:50 WBC 18.4 H (3.8-10.6) k/uL RBC 4.34 (3.80-5.40) m/uL Hgb 13.0 (11.4-16.0) gm/dL Hct 42.0 (34.0-46.0) % MCV 96.7 (80.0-100.0) fL MCH 30.0 (25.0-35.0) pg MCHC 31.1 (31.0-37.0) g/dL RDW 15.1 (11.5-15.5) % Plt Count 203 (150-450) k/uL MPV 7.7 Neutrophils % 94 % Lymphocytes % 3 % Monocytes % 2 % Eosinophils % 1 % Basophils % 0 % Neutrophils # 17.3 H (1.3-7.7) k/uL Lymphocytes # 0.5 L (1.0-4.8) k/uL Monocytes # 0.4 (0-1.0) k/uL Eosinophils # 0.1 (0-0.7) k/uL Basophils # 0.1 (0-0.2) k/uL Sodium 137 (137-145) mmol/L Potassium 4.5 (3.5-5.1) mmol/L Chloride 103 (98-107) mmol/L Carbon Dioxide 29 (22-30) mmol/L Anion Gap 5 mmol/L BUN 27 H (7-17) mg/dL Creatinine 0.73 (0.52-1.04) mg/dL Est GFR (CKD-EPI)AfAm >90 (>60 ml/min/1.73 sqM) Est GFR (CKD-EPI)NonAf 79 (>60 ml/min/1.73 sqM) Glucose 102 H (74-99) mg/dL Plasma Lactic Acid Vinicius 2.5 H* (0.7-2.0) mmol/L Calcium 9.8 (8.4-10.2) mg/dL Total Bilirubin 0.4 (0.2-1.3) mg/dL AST 15 (14-36) U/L ALT 14 (4-34) U/L Alkaline Phosphatase 33 L (38-126) U/L Total Protein 5.4 L (6.3-8.2) g/dL Albumin 3.3 L (3.5-5.0) g/dL Urine Color Urine Appearance (Clear) Urine pH (5.0-8.0) Ur Specific [place] (1.001-1.035) Urine Protein (Negative) Urine Glucose (UA) (Negative) Urine Ketones (Negative) Urine Blood (Negative) Urine Nitrite (Negative) Urine Bilirubin (Negative) Urine Urobilinogen (<2.0) mg/dL Ur Leukocyte Esterase (Negative) Urine WBC (0-5) /hpf Ur Squamous Epith Cells (0-4) /hpf Urine Mucus (None) /hpf Influenza Type A (PCR) (Not Detectd) Influenza Type B (PCR) (Not Detectd) RSV (PCR) (Not Detectd) SARS-CoV-2 (PCR) (Not Detectd) 04/02/23 04/02/23 Range/Units 06:50 06:52 WBC (3.8-10.6) k/uL RBC (3.80-5.40) m/uL Hgb (11.4-16.0) gm/dL Hct (34.0-46.0) % MCV (80.0-100.0) fL MCH (25.0-35.0) pg MCHC (31.0-37.0) g/dL RDW (11.5-15.5) % Plt Count (150-450) k/uL MPV Neutrophils % % Lymphocytes % % Monocytes % % Eosinophils % % Basophils % % Neutrophils # (1.3-7.7) k/uL Lymphocytes # (1.0-4.8) k/uL Monocytes # (0-1.0) k/uL Eosinophils # (0-0.7) k/uL Basophils # (0-0.2) k/uL Sodium (137-145) mmol/L Potassium (3.5-5.1) mmol/L Chloride (98-107) mmol/L Carbon Dioxide (22-30) mmol/L Anion Gap mmol/L BUN (7-17) mg/dL Creatinine (0.52-1.04) mg/dL Est GFR (CKD-EPI)AfAm (>60 ml/min/1.73 sqM) Est GFR (CKD-EPI)NonAf (>60 ml/min/1.73 sqM) Glucose (74-99) mg/dL Plasma Lactic Acid Vinicius (0.7-2.0) mmol/L Calcium (8.4-10.2) mg/dL Total Bilirubin (0.2-1.3) mg/dL AST (14-36) U/L ALT (4-34) U/L Alkaline Phosphatase (38-126) U/L Total Protein (6.3-8.2) g/dL Albumin (3.5-5.0) g/dL Urine Color Yellow Urine Appearance Cloudy H (Clear) Urine pH 7.5 (5.0-8.0) Ur Specific [place] 1.016 (1.001-1.035) Urine Protein Negative (Negative) Urine Glucose (UA) Negative (Negative) Urine Ketones Negative (Negative) Urine Blood Negative (Negative) Urine Nitrite Negative (Negative) Urine Bilirubin Negative (Negative) Urine Urobilinogen <2.0 (<2.0) mg/dL Ur Leukocyte Esterase Large H (Negative) Urine WBC 159 H (0-5) /hpf Ur Squamous Epith Cells <1 (0-4) /hpf Urine Mucus Rare H (None) /hpf Influenza Type A (PCR) Not Detected (Not Detectd) Influenza Type B (PCR) Not Detected (Not Detectd) RSV (PCR) Not Detected (Not Detectd) SARS-CoV-2 (PCR) Not Detected (Not Detectd) Disposition Clinical Impression: UTI (urinary tract infection), Sepsis Disposition: ADMITTED IP TO THIS HOSP Referrals: Leobardo Barbour MD [Primary Care Provider] - 1-2 days
[2023-04-02 07:00] LABS: Appearance,Urine Cloudy (Clear); Bilirubin,Urine Negative (Negative); Blood,Urine Negative (Negative); Color,Urine Yellow; Glucose,Urine (UA) Negative (Negative); Ketones,Urine Negative (Negative); Leukocyte Esterase,Urine Large (Negative); Mucus,Urine Rare /hpf; Nitrite,Urine Negative (Negative); PH, Urine 7.5 (5.0-8.0); Protein,Urine Negative (Negative); Specific Gravity,Urine 1.016 (1.001-1.035); Squamous Epithelial Cell,Urine <1 /hpf (0-4); Urobilinogen,Urine <2.0 mg/dL (<2.0); WBC,Urine 159 /hpf (0-5)
[2023-04-02] MEDS ORDERED: cefTRIAXone IN SWFI 1,000 MG/10 ML SYRINGE IVP STA (07:02)
[2023-04-02] MEDS ORDERED: ACETAMINOPHEN TAB 325 MG TAB PO PRN (07:53)
[2023-04-02] MEDS ORDERED: KETOROLAC 15 MG/ML 1 ML VIAL IVP PRN (07:53)
[2023-04-02] MEDS ORDERED: NALOXONE 0.4 MG/ML 1 ML VIAL IV PRN (07:53)
[2023-04-02] MEDS ORDERED: ONDANSETRON 4 MG/2 ML VIAL IVP PRN (07:53)
[2023-04-02] MEDS ORDERED: IBUPROFEN 400 MG TAB PO PRN (07:53)
[2023-04-02] MEDS ORDERED: LORazepam 1 MG TAB PO STA (08:25)
[2023-04-02] MEDS: SODIUM CHLORIDE 0.9% 1,000 ML IV SCH ×2 (10:05→16:58)
[2023-04-02] MEDS ORDERED: ALPRAZolam 0.25 MG TAB PO PRN (12:35)
[2023-04-02] MEDS ORDERED: NON FORMULARY DRUG (Acetaminophen [Tylenol Arthritis] 650 MG Tablet) PO PRN (12:35)
--- NOTE | 2023-04-02 12:43 | P.HPIM ---
History of Present Illness H&P Date: 04/02/23 Patient is a 77-year-old female with PMH of advanced dementia that presents to the ED after being sent by [facility] for apparent ALLERGIC reaction to Bactrim that she was started yesterday for UTI. Patient is unable to provide any history and majority of information is obtained from documentation. Staff at [facility] noticed that she had a temperature of 100.7 F. They also noted that she had facial flushing likely from the Bactrim that was started yesterday. In the ED, she was noted to have a T-max of 101.7 Fahrenheit. Vital signs are otherwise stable. CBC showed leukocytosis of 18.4. CMP showed BUN of 27, glucose 102, alkaline phosphatase of 33 and albumin of 3.3. Lactic acid was 2.5. Urinalysis shows large leukocyte esterase. Influenza, RSV, COVID-19 negative. Patient is admitted for sepsis likely related to UTI. Pertinent positives and negatives as discussed in HPI, a complete review of systems was performed and all other systems are negative. General: non toxic, no distress, appears at stated age Derm: warm, dry, facial flushing Head: atraumatic, normocephalic, symmetric Eyes: EOMI, no lid lag, anicteric sclera Mouth: no lip lesion, mucus membranes moist Cardiovascular: S1S2 reg, no murmur Lungs: CTA bilateral, no rhonchi, no rales , no accessory muscle use Abdominal: soft, nontender to palpation, no guarding, no appreciable organomegaly Ext: no gross muscle atrophy, no edema, no contractures Neuro: no focal neuro deficits Psych: AO x 0-1 Sepsis likely related to UTI Lactic acidosis Prerenal azotemia Chronic conditions: Advanced dementia Based on my assessment of this patient, this patient meets a high complexity level of care. Patient has an acute diagnosis of sepsis likely related to UTI that poses a threat to life or bodily function. Sepsis likely related to UTI: Start Rocephin 1 g IV daily. Obtain urine and blood culture. Trend lactic acid until negative. Start normal saline at 100 mL per hour. Telemetry monitoring. Lactic acidosis: Management as above. Prerenal azotemia: Management as above. Lovenox SQ for DVT prophylaxis. Patient will be placed FULL CODE for now. I have reviewed the following claims consultant notes: I have reviewed the results of the following tests: CBC, BMP, Lactic acid, UA, Flu, RSV, COVID. I have ordered the following tests: Blood and urine culture. I have discussed the care of this patient with the following independent historian: I have independently interpreted the following test below: I have discussed the management of this patient with the following physician: Case discussed with the ED provider in detail. Past Medical History Past Medical History: Dementia Additional Past Medical History / Comment(s): diverticulitis History of Any Multi-Drug Resistant Organisms: Unobtainable Past Surgical History: Unable to Obtain Additional Past Surgical History / Comment(s): pt's son doesn't think she's had any other surgeries. Past Psychological History: Unable to Obtain Smoking Status: Unknown if ever smoked Past Alcohol Use History: Unable to Obtain Past Drug Use History: Unable to Obtain Medications and Allergies Home Medications Medication Instructions Recorded Confirmed Type Acetaminophen [Tylenol Arthritis] 650 mg PO TID PRN 07/30/22 01/07/23 History Divalproex Sprinkle [Depakote 125 mg PO DAILY@1800 07/30/22 01/07/23 History Sprinkle] Famotidine [Pepcid] 20 mg PO DAILY@0800 07/30/22 01/07/23 History Mirtazapine [Remeron Soluspan] 15 mg PO HS 07/30/22 01/07/23 History Sennosides/Docusate Sodium [Senna 1 tab PO DAILY@0800 07/30/22 01/07/23 History Plus 8.6-50 mg Tablet] busPIRone HCL [Buspar] 7.5 mg PO BID@0800,1600 07/30/22 01/07/23 History Aspirin 81 mg PO DAILY@0800 01/07/23 01/07/23 History Ketoconazole 2% Shampoo [Nizoral] 1 applic TOPICAL TUFR 01/07/23 01/07/23 History Loperamide [Imodium] 2 - 4 mg PO TID PRN MDD 8mg 01/07/23 01/07/23 History Ultra Collagen + Vitamin C 1 tab PO DAILY@0800 01/07/23 01/07/23 History ALPRAZolam [Xanax] 0.25 mg PO BID PRN 2 Days #4 tab 01/09/23 Rx Allergies Allergy/AdvReac Type Severity Reaction Status Date / Time sulfamethoxazole Allergy Anaphylaxis Verified 01/08/23 12:03 [From Bactrim] trimethoprim [From Bactrim] Allergy Anaphylaxis Verified 01/08/23 12:03 Physical Exam Vitals: Vital Signs Temp Pulse Resp BP Pulse Ox 04/02/23 10:15 72 16 104/66 95 04/02/23 08:11 97.8 F 72 20 138/92 97 04/02/23 06:57 99.8 F H 04/02/23 06:52 87 18 117/78 98 04/02/23 05:01 101.7 F H 82 18 132/72 96 Intake and Output 04/01/23 04/02/23 04/02/23 22:59 06:59 14:59 Other: Weight 56.699 kg Results CBC & Chem 7: 04/02/23 05:39 04/02/23 05:39 Labs: Abnormal Lab Results - Last 24 Hours (Table) 04/02/23 04/02/23 04/02/23 Range/Units 05:39 05:39 06:50 WBC 18.4 H (3.8-10.6) k/uL Neutrophils # 17.3 H (1.3-7.7) k/uL Lymphocytes # 0.5 L (1.0-4.8) k/uL BUN 27 H (7-17) mg/dL Glucose 102 H (74-99) mg/dL Plasma Lactic Acid Vinicius 2.5 H* (0.7-2.0) mmol/L Alkaline Phosphatase 33 L (38-126) U/L Total Protein 5.4 L (6.3-8.2) g/dL Albumin 3.3 L (3.5-5.0) g/dL Urine Appearance (Clear) Ur Leukocyte Esterase (Negative) Urine WBC (0-5) /hpf Urine Mucus (None) /hpf 04/02/23 Range/Units 06:52 WBC (3.8-10.6) k/uL Neutrophils # (1.3-7.7) k/uL Lymphocytes # (1.0-4.8) k/uL BUN (7-17) mg/dL Glucose (74-99) mg/dL Plasma Lactic Acid Vinicius (0.7-2.0) mmol/L Alkaline Phosphatase (38-126) U/L Total Protein (6.3-8.2) g/dL Albumin (3.5-5.0) g/dL Urine Appearance Cloudy H (Clear) Ur Leukocyte Esterase Large H (Negative) Urine WBC 159 H (0-5) /hpf Urine Mucus Rare H (None) /hpf
[2023-04-02] MEDS: busPIRone HCl 5 MG TAB PO SCH (17:15)
[2023-04-02] MEDS: DIVALPROEX SPRINKLE 125 MG CAP.SPRINK PO SCH (17:15)
[2023-04-02] MEDS: MIRTAZAPINE 15 MG TAB PO SCH (21:40)
[2023-04-03] MEDS: SODIUM CHLORIDE 0.9% 1,000 ML IV SCH ×3 (01:02→17:29)
[2023-04-03] MEDS: ENOXAPARIN 40 MG/0.4 ML SYRINGE SQ SCH (07:37)
[2023-04-03] MEDS: FAMOTIDINE 20 MG TAB PO SCH (07:45)
[2023-04-03] MEDS: busPIRone HCl 5 MG TAB PO SCH ×2 (07:45→17:43)
[2023-04-03] MEDS: ASPIRIN 81 MG PO SCH (07:45)
[2023-04-03 08:51] LABS: HCT 37.3 % (34.0-46.0); HGB 12.1 gm/dL (11.4-16.0); MCH 31.3 pg (25.0-35.0); MCHC 32.5 g/dL (31.0-37.0); MCV 96.5 fL (80.0-100.0); Mean Platelet Volume 7.2; Platelet Count 166 k/uL (150-450); RBC 3.87 m/uL (3.80-5.40); RDW 14.9 % (11.5-15.5); WBC 12.1 k/uL (3.8-10.6)
[2023-04-03 09:04] LABS: African American GFR (CKD) 65 (>60 ml/min/1.73 sqM); Anion Gap 3 mmol/L; Blood Urea Nitrogen 21 mg/dL (7-17); Calcium 8.4 mg/dL (8.4-10.2); Carbon Dioxide 22 mmol/L (22-30); Chloride 111 mmol/L (98-107); Glucose 90 mg/dL (74-99); Non-African American GFR(CKD) 56 (>60 ml/min/1.73 sqM); Potassium 4.1 mmol/L (3.5-5.1); Sodium 136 mmol/L (137-145)
[2023-04-03] MEDS: DIVALPROEX SPRINKLE 125 MG CAP.SPRINK PO SCH (17:43)
--- NOTE | 2023-04-03 19:08 | P.PN ---
Progress Note - Text Progress Note Date: 04/03/23 Patient is a 77-year-old female with PMH of advanced dementia that presents to the ED after being sent by [facility] for apparent ALLERGIC reaction to Bactrim that she was started yesterday for UTI. Patient is unable to provide any history and majority of information is obtained from documentation. Staff at [facility] noticed that she had a temperature of 100.7 F. They also noted that she had facial flushing likely from the Bactrim that was started yesterday. In the ED, she was noted to have a T-max of 101.7 Fahrenheit. Vital signs are otherwise stable. CBC showed leukocytosis of 18.4. CMP showed BUN of 27, glucose 102, alkaline phosphatase of 33 and albumin of 3.3. Lactic acid was 2.5. Urinalysis shows large leukocyte esterase. Influenza, RSV, COVID-19 negative. Patient is admitted for sepsis likely related to UTI. 04/03/2023: Laying in bed. Somewhat lethargic. A bit delirious. Really did not eat. Patient's IV fluids being changed to D5 0.45. I tried to call patient's son Sudheer on the phone, went into voicemail. On IV ceftriaxone. Active Medications Acetaminophen (Acetaminophen Tab 325 Mg Tab) 650 mg PO Q6HR PRN PRN Reason: Mild Pain or Fever > 100.5 Last Admin: 04/02/23 17:14 Dose: 650 mg Alprazolam (Alprazolam 0.25 Mg Tab) 0.25 mg PO BID PRN PRN Reason: Anxiety Aspirin (Aspirin 81 Mg) 81 mg PO DAILY@0800 [facility] Last Admin: 04/03/23 07:45 Dose: 81 mg Buspirone HCl (Buspirone Hcl 5 Mg Tab) 7.5 mg PO BID@0800,1600 [facility] Last Admin: 04/03/23 17:43 Dose: 7.5 mg Divalproex Sodium (Divalproex Sprinkle 125 Mg Cap.Sprink) 125 mg PO DAILY@1800 [facility] Last Admin: 04/03/23 17:43 Dose: 125 mg Enoxaparin Sodium (Enoxaparin 40 Mg/0.4 Ml Syringe) 40 mg SQ DAILY [facility] Last Admin: 04/03/23 07:37 Dose: 40 mg Famotidine (Famotidine 20 Mg Tab) 20 mg PO DAILY@0800 [facility] Last Admin: 04/03/23 07:45 Dose: 20 mg Ceftriaxone Sodium 1 gm/ (Sodium Chloride) 50 mls @ 100 mls/hr IVPB Q24HR [facility]; Protocol Last Admin: 04/03/23 07:37 Dose: 100 mls/hr Dextrose/Sodium Chloride (Dextrose 5%-1/2ns Iv Soln) 1,000 mls @ 100 mls/hr IV .Q10H [facility] Ibuprofen (Ibuprofen 400 Mg Tab) 400 mg PO Q6HR PRN PRN Reason: Mild Pain or Fever > 100.5 Ketorolac Tromethamine (Ketorolac 15 Mg/Ml 1 Ml Vial) 15 mg IVP Q6HR PRN PRN Reason: Moderate Pain (Scale 4 to 6) Stop: 04/05/23 07:53 Mirtazapine (Mirtazapine 15 Mg Tab) 15 mg PO HS [facility] Last Admin: 04/02/23 21:40 Dose: 15 mg Naloxone HCl (Naloxone 0.4 Mg/Ml 1 Ml Vial) 0.2 mg IV Q2M PRN PRN Reason: Opioid Reversal Ondansetron HCl (Ondansetron 4 Mg/2 Ml Vial) 4 mg IVP Q8HR PRN PRN Reason: Nausea And Vomiting On examination: VITAL SIGNS: [98.6, 74, 19, 1 30 x 31, 93% room air] GENERAL APPEARANCE: Lethargic but arousable. Not really answering questions. HEENT: Normal external appearance of nose and ear. Oral cavity dry mucous membranes EYES: Pupils equal. Conjunctiva normal. NECK: JVD not raised. Mass not palpable. RESPIRATORY: Respiratory effort normal. Lungs decreased breath sounds. CARDIOVASCULAR: First and second sounds normal. No edema. ABDOMEN: Soft. Liver and spleen not palpable. No tenderness. No mass palpable. PSYCHIATRY: Patient lethargic but arousable. INVESTIGATIONS, reviewed in the clinical context: April 03: White count 12.1 hemoglobin 12.1 platelets 166 sodium 136 potassium 4.1 creatinine 0.97 UA positive for leukoesterase, WBC. Influenza type A, B, RSV, COVID-19: Not detected . Assessment and plan: -Sepsis likely related to UTI IV fluids. IV ceftriaxone. -Acute delirium due to dementia/UTI. 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 Cardiac IV ceftriaxone. Prognosis guarded. Will try to reach the son again.
[2023-04-03] MEDS: MIRTAZAPINE 15 MG TAB PO SCH (19:43)
[2023-04-03] MEDS: DEXTROSE 5%-0.45% NACL 1,000 ML IV SCH (19:44)
[2023-04-04] MEDS: ENOXAPARIN 40 MG/0.4 ML SYRINGE SQ SCH (07:34)
[2023-04-04] MEDS: ASPIRIN 81 MG PO SCH (07:38)
[2023-04-04] MEDS: busPIRone HCl 5 MG TAB PO SCH ×2 (07:38→16:36)
[2023-04-04] MEDS: FAMOTIDINE 20 MG TAB PO SCH (07:38)
[2023-04-04] MEDS: DIVALPROEX SPRINKLE 125 MG CAP.SPRINK PO SCH (16:36)
--- NOTE | 2023-04-04 18:56 | P.PN ---
Progress Note - Text Progress Note Date: 04/04/23 Patient is a 77-year-old female with PMH of advanced dementia that presents to the ED after being sent by [facility] for apparent ALLERGIC reaction to Bactrim that she was started yesterday for UTI. Patient is unable to provide any history and majority of information is obtained from documentation. Staff at [facility] noticed that she had a temperature of 100.7 F. They also noted that she had facial flushing likely from the Bactrim that was started yesterday. In the ED, she was noted to have a T-max of 101.7 Fahrenheit. Vital signs are otherwise stable. CBC showed leukocytosis of 18.4. CMP showed BUN of 27, glucose 102, alkaline phosphatase of 33 and albumin of 3.3. Lactic acid was 2.5. Urinalysis shows large leukocyte esterase. Influenza, RSV, COVID-19 negative. Patient is admitted for sepsis likely related to UTI. 04/03/2023: Laying in bed. Somewhat lethargic. A bit delirious. Really did not eat. Patient's IV fluids being changed to D5 0.45. I tried to call patient's son Sudheer on the phone, went into voicemail. On IV ceftriaxone. 04/04/2023: Bit more responsive today. Only drinking liquids. Refusing food. Intermittently calling out a bit loud. On IV fluids. Active Medications Acetaminophen (Acetaminophen Tab 325 Mg Tab) 650 mg PO Q6HR PRN PRN Reason: Mild Pain or Fever > 100.5 Last Admin: 04/02/23 17:14 Dose: 650 mg Alprazolam (Alprazolam 0.25 Mg Tab) 0.25 mg PO BID PRN PRN Reason: Anxiety Aspirin (Aspirin 81 Mg) 81 mg PO DAILY@0800 [facility] Last Admin: 04/04/23 07:38 Dose: 81 mg Buspirone HCl (Buspirone Hcl 5 Mg Tab) 7.5 mg PO BID@0800,1600 [facility] Last Admin: 04/04/23 16:36 Dose: 7.5 mg Divalproex Sodium (Divalproex Sprinkle 125 Mg Cap.Sprink) 125 mg PO DAILY@1800 [facility] Last Admin: 04/04/23 16:36 Dose: 125 mg Enoxaparin Sodium (Enoxaparin 40 Mg/0.4 Ml Syringe) 40 mg SQ DAILY [facility] Last Admin: 04/04/23 07:34 Dose: 40 mg Famotidine (Famotidine 20 Mg Tab) 20 mg PO DAILY@0800 [facility] Last Admin: 04/04/23 07:38 Dose: 20 mg Ceftriaxone Sodium 1 gm/ (Sodium Chloride) 50 mls @ 100 mls/hr IVPB Q24HR [facility]; Protocol Last Admin: 04/04/23 07:35 Dose: 100 mls/hr Dextrose/Sodium Chloride (Dextrose 5%-1/2ns Iv Soln) 1,000 mls @ 100 mls/hr IV .Q10H [facility] Last Admin: 04/03/23 19:44 Dose: 100 mls/hr Ibuprofen (Ibuprofen 400 Mg Tab) 400 mg PO Q6HR PRN PRN Reason: Mild Pain or Fever > 100.5 Ketorolac Tromethamine (Ketorolac 15 Mg/Ml 1 Ml Vial) 15 mg IVP Q6HR PRN PRN Reason: Moderate Pain (Scale 4 to 6) Stop: 04/05/23 07:53 Mirtazapine (Mirtazapine 15 Mg Tab) 15 mg PO HS [facility] Last Admin: 04/03/23 19:43 Dose: 15 mg Naloxone HCl (Naloxone 0.4 Mg/Ml 1 Ml Vial) 0.2 mg IV Q2M PRN PRN Reason: Opioid Reversal Ondansetron HCl (Ondansetron 4 Mg/2 Ml Vial) 4 mg IVP Q8HR PRN PRN Reason: Nausea And Vomiting On examination: VITAL SIGNS: 99, 68, 18, 1 48 x 65, 95% room air GENERAL APPEARANCE: Bit more awake today. Attempting to talk about HEENT: Normal external appearance of nose and ear. Oral cavity dry mucous membranes EYES: Pupils equal. Conjunctiva normal. NECK: JVD not raised. Mass not palpable. RESPIRATORY: Respiratory effort normal. Lungs decreased breath sounds. CARDIOVASCULAR: First and second sounds normal. No edema. ABDOMEN: Soft. Liver and spleen not palpable. No tenderness. No mass palpable. PSYCHIATRY: Bit more awake today. Does speak out intermittently's. INVESTIGATIONS, reviewed in the clinical context: April 03: White count 12.1 hemoglobin 12.1 platelets 166 sodium 136 potassium 4.1 creatinine 0.97 UA positive for leukoesterase, WBC. Influenza type A, B, RSV, COVID-19: Not detected . Assessment and plan: -Sepsis likely related to UTI IV fluids. IV ceftriaxone. -Acute delirium due to dementia/UTI. Close to respond -Acute UTI with cystitis IV ceftriaxone -Lactic acidosis, secondary to sepsis on presentation -Chronic medical debility -Severe cognitive impairment due to late onset Alzheimer's dementia -Full code Continue D5 0.45. , IV ceftriaxone. Encourage oral intake.
[2023-04-04] MEDS: DEXTROSE 5%-0.45% NACL 1,000 ML IV SCH ×2 (20:15→20:18)
[2023-04-04] MEDS: MIRTAZAPINE 15 MG TAB PO SCH (22:45)
[2023-04-05] MEDS: DEXTROSE 5%-0.45% NACL 1,000 ML IV SCH ×3 (01:57→21:02)
[2023-04-05 05:51] LABS: African American GFR (CKD) 66 (>60 ml/min/1.73 sqM); Anion Gap 5 mmol/L; Blood Urea Nitrogen 14 mg/dL (7-17); Calcium 8.6 mg/dL (8.4-10.2); Carbon Dioxide 20 mmol/L (22-30); Chloride 110 mmol/L (98-107); Glucose 110 mg/dL (74-99); Non-African American GFR(CKD) 57 (>60 ml/min/1.73 sqM); Potassium 3.2 mmol/L (3.5-5.1); Sodium 135 mmol/L (137-145)
[2023-04-05] MEDS: busPIRone HCl 5 MG TAB PO SCH ×2 (07:34→17:02)
[2023-04-05] MEDS: ENOXAPARIN 40 MG/0.4 ML SYRINGE SQ SCH (07:34)
[2023-04-05] MEDS: FAMOTIDINE 20 MG TAB PO SCH (07:35)
[2023-04-05] MEDS: ASPIRIN 81 MG PO SCH (07:35)
--- NOTE | 2023-04-05 11:46 | CDI ---
Documentation Clarification Form Date: 04/05/2023 11:18:30 AM From: Carolyn Mancuso RN CCDS Phone: [phone] Admit Date: 04/02/2023 07:46:00 AM Patient Name: Ricarda Wade Visit Number: [id number] Discharge Date: ATTENTION: The Clinical Documentation Specialists (CDI) and [facility] Coding Staff appreciate your assistance in clarifying documentation. Please respond to the clarification below the line at the bottom and electronically sign. The CDI & [facility] Coding staff will review the response and follow-up if needed. Please note: Queries are made part of the Legal Health Record. If you have any questions, please contact the author of this message via ITS. Dr. Ab Mosqueda Your patient has the documented symptom of Altered Mental Status 04/02, ED Note. Additional clarification regarding the etiology/cause of this symptom is requested. History/Risk Factors: 77-year-old female presents to ED with altered mental status, fever and flushing of the face. Medical History: Severe cognitive impairment due to late onset Alzheimers dementia. 04/02, H&P. Clinical Indicators: The patient was started on Bactrim for UTI. Labs: 04/02: Wbc 18.4; Neutrophils 17.3; Lactic acid 2.5; UA: appearance cloudy, large leukocyte esterase, Wbc 159 VSS, 04/02: B/P 132/72; HR 82; Temp 101.7 Oral F; SpO2 96% room air Treatment: 04/02: Tylenol Oral suspension PO x 1; 04/02 0.9NS 2L bolus; 04/03 Ceftriaxone IVPB Q24HR Please clarify the etiology of the symptom of Altered Mental Status: [ + ] Metabolic Encephalopathy superimposed on Alzheimers disease, Sepsis and UTI [ ] Alzheimers only [ ] Other condition (please specify) [ ] Unable to determine (Template Last Revised: September 2020) MTDD
[2023-04-05] MEDS: DIVALPROEX SPRINKLE 125 MG CAP.SPRINK PO SCH (17:04)
[2023-04-05] MEDS ORDERED: POTASSIUM CHLORIDE ER 20 MEQ TAB.ER PO STA (17:52)
--- NOTE | 2023-04-05 17:53 | P.PN ---
Progress Note - Text Progress Note Date: 04/05/23 Patient is a 77-year-old female with PMH of advanced dementia that presents to the ED after being sent by [facility] for apparent ALLERGIC reaction to Bactrim that she was started yesterday for UTI. Patient is unable to provide any history and majority of information is obtained from documentation. Staff at [facility] noticed that she had a temperature of 100.7 F. They also noted that she had facial flushing likely from the Bactrim that was started yesterday. In the ED, she was noted to have a T-max of 101.7 Fahrenheit. Vital signs are otherwise stable. CBC showed leukocytosis of 18.4. CMP showed BUN of 27, glucose 102, alkaline phosphatase of 33 and albumin of 3.3. Lactic acid was 2.5. Urinalysis shows large leukocyte esterase. Influenza, RSV, COVID-19 negative. Patient is admitted for sepsis likely related to UTI. 04/03/2023: Laying in bed. Somewhat lethargic. A bit delirious. Really did not eat. Patient's IV fluids being changed to D5 0.45. I tried to call patient's son Sudheer on the phone, went into voicemail. On IV ceftriaxone. 04/04/2023: Bit more responsive today. Only drinking liquids. Refusing food. Intermittently calling out a bit loud. On IV fluids. 04/15/2023: Patient is awake. Vital refusing to eat. Patient's brother and sister all with visiting. Getting IV fluids. No fever. IV ceftriaxone. I spoke to patient's [id number] Yesenia over the phone. At the baseline patient is able to recognize her jrxrpunu-yo-ihf and son. Not really wanted to hold much of a conversation. Does eat okay. I did give an update. Jazz understands prognosis is guarded. We'll see how the patient doesn't 4-48 hours. Active Medications Acetaminophen (Acetaminophen Tab 325 Mg Tab) 650 mg PO Q6HR PRN PRN Reason: Mild Pain or Fever > 100.5 Last Admin: 04/02/23 17:14 Dose: 650 mg Alprazolam (Alprazolam 0.25 Mg Tab) 0.25 mg PO BID PRN PRN Reason: Anxiety Aspirin (Aspirin 81 Mg) 81 mg PO DAILY@0800 [facility] Last Admin: 04/05/23 07:35 Dose: 81 mg Buspirone HCl (Buspirone Hcl 5 Mg Tab) 7.5 mg PO BID@0800,1600 [facility] Last Admin: 04/05/23 17:02 Dose: 7.5 mg Divalproex Sodium (Divalproex Sprinkle 125 Mg Cap.Sprink) 125 mg PO DAILY@1800 [facility] Last Admin: 04/05/23 17:04 Dose: 125 mg Enoxaparin Sodium (Enoxaparin 40 Mg/0.4 Ml Syringe) 40 mg SQ DAILY [facility] Last Admin: 04/05/23 07:34 Dose: 40 mg Famotidine (Famotidine 20 Mg Tab) 20 mg PO DAILY@0800 [facility] Last Admin: 04/05/23 07:35 Dose: 20 mg Ceftriaxone Sodium 1 gm/ (Sodium Chloride) 50 mls @ 100 mls/hr IVPB Q24HR [facility]; Protocol Last Admin: 04/05/23 07:35 Dose: 100 mls/hr Dextrose/Sodium Chloride (Dextrose 5%-1/2ns Iv Soln) 1,000 mls @ 100 mls/hr IV .Q10H [facility] Last Admin: 04/05/23 13:36 Dose: Not Given Ibuprofen (Ibuprofen 400 Mg Tab) 400 mg PO Q6HR PRN PRN Reason: Mild Pain or Fever > 100.5 Mirtazapine (Mirtazapine 15 Mg Tab) 15 mg PO HS [facility] Last Admin: 04/04/23 22:45 Dose: 15 mg Naloxone HCl (Naloxone 0.4 Mg/Ml 1 Ml Vial) 0.2 mg IV Q2M PRN PRN Reason: Opioid Reversal Ondansetron HCl (Ondansetron 4 Mg/2 Ml Vial) 4 mg IVP Q8HR PRN PRN Reason: Nausea And Vomiting On examination: VITAL SIGNS: 97.9, 69, 17, 160/73, 95% room air GENERAL APPEARANCE: Awake, but not really talking. HEENT: Normal external appearance of nose and ear. Oral cavity dry mucous membranes EYES: Pupils equal. Conjunctiva normal. NECK: JVD not raised. Mass not palpable. RESPIRATORY: Respiratory effort normal. Lungs decreased breath sounds. CARDIOVASCULAR: First and second sounds normal. No edema. ABDOMEN: Soft. Liver and spleen not palpable. No tenderness. No mass palpable. PSYCHIATRY: Did not answer questions today. INVESTIGATIONS, reviewed in the clinical context: April 05: Sodium 135 potassium 3.2 creatinine 0.96 April 03: White count 12.1 hemoglobin 12.1 platelets 166 sodium 136 potassium 4.1 creatinine 0.97 UA positive for leukoesterase, WBC. Influenza type A, B, RSV, COVID-19: Not detected . Assessment and plan: -Sepsis likely related to UTI IV fluids. IV ceftriaxone. -Acute delirium due to dementia/UTI. Slow to respond. -Acute UTI with cystitis IV ceftriaxone -Lactic acidosis, secondary to sepsis on presentation -Chronic medical debility -Severe cognitive impairment due to late onset Alzheimer's dementia -DO NOT RESUSCITATE Continue D5 0.45. , IV ceftriaxone. Spoke earlier today the patient's brother and sister in the room. Later spoke to patient's [id number] Yesenia over the phone. Updated. Understands prognosis is guarded.
[2023-04-05] MEDS ORDERED: POTASSIUM BICARBONATE/CIT AC 20 MEQ TABLET.EFF PO ONE (18:00)
[2023-04-05] MEDS: MIRTAZAPINE 15 MG TAB PO SCH (21:03)
[2023-04-06] MEDS: DEXTROSE 5%-0.45% NACL 1,000 ML IV SCH ×3 (05:29→23:42)
[2023-04-06] MEDS: ENOXAPARIN 40 MG/0.4 ML SYRINGE SQ SCH (08:17)
[2023-04-06] MEDS: ASPIRIN 81 MG PO SCH (08:17)
[2023-04-06] MEDS: busPIRone HCl 5 MG TAB PO SCH ×2 (08:18→16:00)
[2023-04-06] MEDS: FAMOTIDINE 20 MG TAB PO SCH (08:18)
[2023-04-06] MEDS: DIVALPROEX SPRINKLE 125 MG CAP.SPRINK PO SCH (17:20)
--- NOTE | 2023-04-06 19:40 | P.PN ---
Progress Note - Text Progress Note Date: 04/06/23 Hospital course: Patient is a 77-year-old female with PMH of advanced dementia that presents to [facility] ED after being sent by [facility] for apparent ALLERGIC reaction to Bactrim that she was started yesterday for UTI. Patient is unable to provide any history and majority of information is obtained from documentation. Staff at [facility] noticed that she had a temperature of 100.7 F. They also noted that she had facial flushing likely from the Bactrim that was started yesterday. In the ED, she was noted to have a T-max of 101.7 Fahrenheit. Vital signs are otherwise stable. CBC showed leukocytosis of 18.4. CMP showed BUN of 27, glucose 102, alkaline phosphatase of 33 and albumin of 3.3. Lactic acid was 2.5. Urinalysis shows large leukocyte esterase. Influenza, RSV, COVID-19 negative. Patient is admitted for sepsis likely related to UTI. 04/03/2023: Laying in bed. Somewhat lethargic. A bit delirious. Really did not eat. Patient's IV fluids being changed to D5 0.45. I tried to call patient's son Sudheer on the phone, went into voicemail. On IV ceftriaxone. 04/04/2023: Bit more responsive today. Only drinking liquids. Refusing food. Intermittently calling out a bit loud. On IV fluids. 04/05/2023: Patient is awake. Vital refusing to eat. Patient's brother and sister all with visiting. Getting IV fluids. No fever. IV ceftriaxone. I spoke to patient's [id number] Yesenia over the phone. At the baseline patient is able to recognize her [id number]-rhr and son. Not really wanted to hold much of a conversation. Does eat okay. I did give an update. Jazz understands prognosis is guarded. We'll see how the patient doesn't 4-48 hours. 04/06/2023: Awake laying in bed. Refusing to eat. Nurse was able to give a little bit of water. Patient's sister is visiting. Patient's son spoke to go forensic social worker. About hospice. Appropriate. public health worker looking into the same. Prognosis not good. Since patient is able to take her medications with assistance. Active Medications Acetaminophen (Acetaminophen Tab 325 Mg Tab) 650 mg PO Q6HR PRN PRN Reason: Mild Pain or Fever > 100.5 Last Admin: 04/02/23 17:14 Dose: 650 mg Alprazolam (Alprazolam 0.25 Mg Tab) 0.25 mg PO BID PRN PRN Reason: Anxiety Aspirin (Aspirin 81 Mg) 81 mg PO DAILY@0800 [facility] Last Admin: 04/06/23 08:17 Dose: 81 mg Buspirone HCl (Buspirone Hcl 5 Mg Tab) 7.5 mg PO BID@0800,1600 [facility] Last Admin: 04/06/23 16:00 Dose: 7.5 mg Divalproex Sodium (Divalproex Sprinkle 125 Mg Cap.Sprink) 125 mg PO DAILY@1800 [facility] Last Admin: 04/06/23 17:20 Dose: 125 mg Enoxaparin Sodium (Enoxaparin 40 Mg/0.4 Ml Syringe) 40 mg SQ DAILY [facility] Last Admin: 04/06/23 08:17 Dose: 40 mg Famotidine (Famotidine 20 Mg Tab) 20 mg PO DAILY@0800 [facility] Last Admin: 04/06/23 08:18 Dose: 20 mg Ceftriaxone Sodium 1 gm/ (Sodium Chloride) 50 mls @ 100 mls/hr IVPB Q24HR [facility]; Protocol Last Admin: 04/06/23 08:18 Dose: 100 mls/hr Dextrose/Sodium Chloride (Dextrose 5%-1/2ns Iv Soln) 1,000 mls @ 125 mls/hr IV .Q8H [facility] Last Admin: 04/06/23 14:19 Dose: 125 mls/hr Ibuprofen (Ibuprofen 400 Mg Tab) 400 mg PO Q6HR PRN PRN Reason: Mild Pain or Fever > 100.5 Mirtazapine (Mirtazapine 15 Mg Tab) 15 mg PO HS [facility] Last Admin: 04/05/23 21:03 Dose: 15 mg Naloxone HCl (Naloxone 0.4 Mg/Ml 1 Ml Vial) 0.2 mg IV Q2M PRN PRN Reason: Opioid Reversal Ondansetron HCl (Ondansetron 4 Mg/2 Ml Vial) 4 mg IVP Q8HR PRN PRN Reason: Nausea And Vomiting On examination: VITAL SIGNS: 98.6, 71, 19, 153/77, 95% room air GENERAL APPEARANCE: Awake, but not really talking. HEENT: Normal external appearance of nose and ear. Oral cavity dry mucous membranes EYES: Pupils equal. Conjunctiva normal. NECK: JVD not raised. Mass not palpable. RESPIRATORY: Respiratory effort normal. Lungs decreased breath sounds. CARDIOVASCULAR: First and second sounds normal. No edema. ABDOMEN: Soft. Liver and spleen not palpable. No tenderness. No mass palpable. PSYCHIATRY: Awake but answering questions. Tired INVESTIGATIONS, reviewed in the clinical context: April 05: Sodium 135 potassium 3.2 creatinine 0.96 April 03: White count 12.1 hemoglobin 12.1 platelets 166 sodium 136 potassium 4.1 creatinine 0.97 UA positive for leukoesterase, WBC. Influenza type A, B, RSV, COVID-19: Not detected . Assessment and plan: -Sepsis likely related to UTI IV fluids. IV ceftriaxone. -Acute delirium due to dementia/UTI. Slow to respond. -Acute UTI with cystitis IV ceftriaxone -Lactic acidosis, secondary to sepsis on presentation -Chronic medical debility -Severe cognitive impairment due to late onset Alzheimer's dementia -DO NOT RESUSCITATE Continue D5 0.45. , IV ceftriaxone. Patient's son called him to look into hospice. Appropriate. public health worker looking to the same. Possibly discharge tomorrow with hospice.
[2023-04-06] MEDS: MIRTAZAPINE 15 MG TAB PO SCH (21:36)
[2023-04-07 07:33] VITALS: BP 161/82; RESP 18; TEMP 98.7
[2023-04-07] MEDS: DEXTROSE 5%-0.45% NACL 1,000 ML IV SCH (09:55)
[2023-04-07] MEDS: busPIRone HCl 5 MG TAB PO SCH ×2 (09:56→10:07)
[2023-04-07] MEDS: ASPIRIN 81 MG PO SCH ×2 (09:56→10:07)
[2023-04-07] MEDS: FAMOTIDINE 20 MG TAB PO SCH ×2 (09:56→10:07)
[2023-04-07] MEDS: ENOXAPARIN 40 MG/0.4 ML SYRINGE SQ SCH (09:57)
[2023-04-07 14:23] VITALS: BMI 22.8
[2023-04-07 14:51] VITALS: PULSE 83
--- NOTE | 2023-04-07 19:10 | P.DS ---
Providers Date of admission: 04/02/23 07:46 Expected date of discharge: 04/07/23 Attending physician: Ab Mosqueda [facility] Course: Hospital course: Patient is a 77-year-old female with PMH of advanced dementia that presents to the ED after being sent by [facility] for apparent ALLERGIC reaction to Bactrim that she was started yesterday for UTI. Patient is unable to provide any history and majority of information is obtained from documentation. Staff at [facility] noticed that she had a temperature of 100.7 F. They also noted that she had facial flushing likely from the Bactrim that was started yesterday. In the ED, she was noted to have a T-max of 101.7 Fahrenheit. Vital signs are otherwise stable. CBC showed leukocytosis of 18.4. CMP showed BUN of 27, glucose 102, alkaline phosphatase of 33 and albumin of 3.3. Lactic acid was 2.5. Urinalysis shows large leukocyte esterase. Influenza, RSV, COVID-19 negative. Patient is admitted for sepsis likely related to UTI. 04/03/2023: Laying in bed. Somewhat lethargic. A bit delirious. Really did not eat. Patient's IV fluids being changed to D5 0.45. I tried to call patient's son Sudheer on the phone, went into voicemail. On IV ceftriaxone. 04/04/2023: Bit more responsive today. Only drinking liquids. Refusing food. Intermittently calling out a bit loud. On IV fluids. 04/05/2023: Patient is awake. Vital refusing to eat. Patient's brother and sister all with visiting. Getting IV fluids. No fever. IV ceftriaxone. I spoke to patient's kuayyqlq-ef-hgi Yesenia over the phone. At the baseline patient is able to recognize her hgwzloyc-os-sxl and son. Not really wanted to hold much of a conversation. Does eat okay. I did give an update. Jazz understands prognosis is guarded. We'll see how the patient doesn't 4-48 hours. 04/06/2023: Awake laying in bed. Refusing to eat. Nurse was able to give a little bit of water. Patient's sister is visiting. Patient's son spoke to go marriage and family social worker. About hospice. Appropriate. family day care worker looking into the same. Prognosis not good. Since patient is able to take her medications with assistance. 04/07/2023: Patient continues to refuse to eat. Awake. Patient being discharged to [facility]. Discussed with hospice case manager. Has been taking her medication with some coaxing. On examination: VITAL SIGNS: 88.7, 83, 18, 160 was 82, 92% room air GENERAL APPEARANCE: Awake, but not really talking. HEENT: Normal external appearance of nose and ear. Oral cavity dry mucous membranes EYES: Pupils equal. Conjunctiva normal. NECK: JVD not raised. Mass not palpable. RESPIRATORY: Respiratory effort normal. Lungs decreased breath sounds. CARDIOVASCULAR: First and second sounds normal. No edema. ABDOMEN: Soft. Liver and spleen not palpable. No tenderness. No mass palpable. PSYCHIATRY: Awake but not really answering questions. Tired INVESTIGATIONS, reviewed in the clinical context: April 05: Sodium 135 potassium 3.2 creatinine 0.96 April 03: White count 12.1 hemoglobin 12.1 platelets 166 sodium 136 potassium 4.1 creatinine 0.97 UA positive for leukoesterase, WBC. Influenza type A, B, RSV, COVID-19: Not detected . Assessment and plan: -Sepsis likely related to UTI -Acute delirium due to dementia/UTI. Slow to respond. -Acute UTI with cystitis -Lactic acidosis, secondary to sepsis on presentation -Chronic medical debility -Severe cognitive impairment due to late onset Alzheimer's dementia -DO NOT RESUSCITATE/hospice Disposition: [facility] Plan - Discharge Summary Discharge Rx Participant: No New Discharge Prescriptions: Continue Mirtazapine [Remeron Soluspan] 15 mg PO HS busPIRone HCL [Buspar] 7.5 mg PO BID@0800,1600 Fungicure Intense [place] 1 applic TOPICAL DAILY PRN PRN Reason: FUNGAL INFECTION Famotidine [Pepcid] 20 mg PO DAILY@0800 Divalproex Sprinkle [Depakote Sprinkle] 125 mg PO DAILY@1800 Acetaminophen [Tylenol Arthritis] 650 mg PO TID PRN PRN Reason: Pain Ultra Collagen + Vitamin C 1 tab PO DAILY@0800 Aspirin 81 mg PO DAILY@0800 Loperamide [Imodium] 2 - 4 mg PO TID PRN MDD 8mg PRN Reason: Diarrhea ALPRAZolam [Xanax] 0.25 mg PO BID PRN 2 Days #4 tab PRN Reason: Anxiety ALPRAZolam [Niravam (ODT)] 0.25 mg SL BID PRN PRN Reason: Anxiety Gentamicin Sulfate [Gentamicin Sulfate 0.1%] 1 applic TOPICAL TID Ketoconazole 2% Shampoo [Nizoral] 1 applic TOPICAL TUFR Discontinued Sennosides/Docusate Sodium [Senna Plus 8.6-50 mg Tablet] 1 tab PO DAILY@0800 dexAMETHasone [Decadron] 4 mg PO DAILY Sulfamethox-Tmp 800-160Mg [Bactrim DS 800-160 mg] 1 tab PO DIRECTED Discharge Medication List Acetaminophen [Tylenol Arthritis] 650 mg PO TID PRN 07/30/22 [History] Divalproex Sprinkle [Depakote Sprinkle] 125 mg PO DAILY@1800 07/30/22 [History] Famotidine [Pepcid] 20 mg PO DAILY@0800 07/30/22 [History] Mirtazapine [Remeron Soluspan] 15 mg PO HS 07/30/22 [History] busPIRone HCL [Buspar] 7.5 mg PO BID@0800,1600 07/30/22 [History] Aspirin 81 mg PO DAILY@0800 01/07/23 [History] Loperamide [Imodium] 2 - 4 mg PO TID PRN MDD 8mg 01/07/23 [History] Ultra Collagen + Vitamin C 1 tab PO DAILY@0800 01/07/23 [History] ALPRAZolam [Xanax] 0.25 mg PO BID PRN 2 Days #4 tab 01/09/23 [Rx] ALPRAZolam [Niravam (ODT)] 0.25 mg SL BID PRN 04/02/23 [History] Fungicure Intense [place] 1 applic TOPICAL DAILY PRN 04/02/23 [History] Gentamicin Sulfate [Gentamicin Sulfate 0.1%] 1 applic TOPICAL TID 04/02/23 [History] Ketoconazole 2% Shampoo [Nizoral] 1 applic TOPICAL TUFR 04/02/23 [History] Follow up Appointment(s)/Referral(s): [facility] [NON-STAFF] - As Needed Leobardo Barbour MD [Primary Care Provider] - 1-2 days Activity/Diet/Wound Care/Special Instructions: Patient will return to [facility] with [facility]. Discharge Disposition: HOME WITH HOSPICE
== END 2023-04-07 15:56 | disposition hospice, home (50) | DRG 871 ==
LOC: EC 04:58 → 5NMEDONC 07:46 → 4SSUR 13:36
PROVIDERS: ADMIT Hospitalist; ATTEND Hospitalist
DX: A41.89 Other specified sepsis (principal); G93.41 Metabolic encephalopathy; F02.84 Dementia in other diseases classified elsewhere, unspecified severity, with anxiety; F05 Delirium due to known physiological condition; N12 Tubulo-interstitial nephritis, not specified as acute or chronic; N30.00 Acute cystitis without hematuria; E87.20 Acidosis, unspecified; G30.1 Alzheimer's disease with late onset; T36.8X5A Adverse effect of other systemic antibiotics, initial encounter; Z20.822 Contact with and (suspected) exposure to COVID-19; Z66 Do not resuscitate; Z79.82 Long term (current) use of aspirin; Z79.899 Other long term (current) drug therapy; Z51.5 Encounter for palliative care
CPT/HCPCS: 36415; 80048; 80053; 81001; 83605; 85025; 85027; 87040; 87086; 87636; 96361; 96374; 99285